=== PATIENT | female | born 1945 | race Caucasian/White ===

== ENCOUNTER → 2016-12-27 | Outpatient (CLI) | payer MEDICARE, OTHER ==
[~2016-12-27] MED LIST: ACET-1158; CARI350T21; LEVO150T68; OMEP20TA44; PLAVIX; PRON100T; [UNRECOGNIZED DRUG - CODE]
[2016-12-27 12:27] LABS: Basophils # (auto) 0 uL; Basophils % (auto) 0.4 % (0.0-2.0); Eosinophils # (auto) 0.1 uL; Eosinophils % (auto) 1.2 % (0.0-7.0); Hematocrit 37.4 % (36.0-46.0); Hemoglobin 12.3 g/dL (12.2-16.2); Lymphocytes # (auto) 1.6 uL; Lymphocytes % (auto) 26.9 % (10.0-50.0); Mean Corpuscular Hemoglobin 27.7 pg (28.0-32.0); Mean Corpuscular Hgb Conc. 32.8 g/dL (32.0-36.0); Mean Corpuscular Volume 84.5 fL (80.0-100.0); Mean Platelet Volume 8.6 fL (7.4-10.4); Monocytes # (auto) 0.5 uL; Monocytes % (auto) 8.3 % (0.0-12.0); Neutrophils # (auto) 3.7 uL; Neutrophils % (auto) 63.2 % (37.0-80.0); Platelet Count (auto) 247 10^3/uL (140-450); Red Cell Distribution Width 15.5 % (11.6-16.0); White Blood Cell 5.9 10^3/uL (4.4-10.8)
[2016-12-27 12:58] LABS: Albumin 3.3 g/dL (3.4-5.0); Bilirubin, Direct 0.1 mg/dL (0-0.2); Bilirubin, Total 0.3 mg/dL (0.2-1.0); Calcium 9.3 mg/dL (8.5-10.1); Potassium 4.2 mmol/L (3.5-5.1); Total Protein 7.6 g/dL (6.4-8.2)
== END | disposition home or self-care (01) ==
LOC: LAB 09:47
PROVIDERS: ATTEND Internal Medicine Cardiovascular Disease
DX: I10 Essential (primary) hypertension (principal); E78.00 Pure hypercholesterolemia, unspecified; K74.1 Hepatic sclerosis; E11.9 Type 2 diabetes mellitus without complications; E03.9 Hypothyroidism, unspecified; D64.9 Anemia, unspecified; N39.0 Urinary tract infection, site not specified
CPT/HCPCS: 36415; 80048; 80061; 80076; 82306; 83036; 84443; 85025

== ENCOUNTER 2017-01-25 11:38 | Emergency (ER) | payer MEDICARE, OTHER ==
[~2017-01-25] VITALS: Ht 170.2 cm; Wt 108.9 kg
[~2017-01-25 11:38] MED LIST changes: +CARI-316; -CARI350T21
[2017-01-25] MEDS ORDERED: LORazepam 2MG/ML-1ML VIAL IV ONE (12:15)
[2017-01-25] MEDS ORDERED: cloNIDine HCL 0.1 MG TAB PO ONE (12:15)
[2017-01-25 12:20] VITALS: BP 142/68
[2017-01-25 13:22] LABS: Basophils # (auto) 0 uL; Basophils % (auto) 0.2 % (0.0-2.0); Eosinophils # (auto) 0.1 uL; Eosinophils % (auto) 1.3 % (0.0-7.0); Hematocrit 34.7 % (36.0-46.0); Hemoglobin 11.6 g/dL (12.2-16.2); Lymphocytes # (auto) 1.2 uL; Lymphocytes % (auto) 21.1 % (10.0-50.0); Mean Corpuscular Hgb Conc. 33.3 g/dL (32.0-36.0); Mean Corpuscular Volume 83.9 fL (80.0-100.0); Mean Platelet Volume 8.2 fL (7.4-10.4); Monocytes # (auto) 0.5 uL; Monocytes % (auto) 8.4 % (0.0-12.0); Neutrophils # (auto) 3.9 uL; Platelet Count (auto) 231 10^3/uL (140-450); Red Cell Distribution Width 15.4 % (11.6-16.0); White Blood Cell 5.6 10^3/uL (4.4-10.8)
[2017-01-25 13:32] LABS: Partial Thromboplastin Time 25.9 sec (22.64-33.71); Prothrombin Time 10.9 sec (9.37-12.3)
[2017-01-25 13:41] LABS: Albumin 3.3 g/dL (3.4-5.0); Alkaline Phosphatase 119 U/L (45-117); Anion Gap 7 (5-15); Aspartate Aminotransferase 17 U/L (15-37); BUN/Creatinine Ratio 27.6; Bilirubin, Total 0.3 mg/dL (0.2-1.0); Blood Urea Nitrogen 24 mg/dL (7-18); Carbon Dioxide 24 mmol/L (21-32); Chloride 110 mmol/L (98-107); GFR African American 83 mL/min; GFR Non-African American 69 mL/min; Glucose 95 mg/dL (74-106); Potassium 4.1 mmol/L (3.5-5.1); Sodium 141 mmol/L (136-145); Total Protein 7.2 g/dL (6.4-8.2)
[2017-01-25 13:48] LABS: B-Type Natriuretic Peptide 59.47 pg/mL (0-100)
[2017-01-25 13:56] LABS: Temperature: 23.1 C (20.0-25.0)
== END 2017-01-25 15:04 | disposition home or self-care (01) ==
LOC: EDUNIT# 11:38 → ER 11:38 → EDBD 11:38 → ER 15:00
DX: I10 Essential (primary) hypertension (principal); F41.9 Anxiety disorder, unspecified; M79.89 Other specified soft tissue disorders; I25.2 Old myocardial infarction; Z86.718 Personal history of other venous thrombosis and embolism; Z98.61 Coronary angioplasty status; Z90.710 Acquired absence of both cervix and uterus; Z88.1 Allergy status to other antibiotic agents; Z88.6 Allergy status to analgesic agent; Z88.8 Allergy status to other drugs, medicaments and biological substances; Z91.041 Radiographic dye allergy status; Z86.73 Personal history of transient ischemic attack (TIA), and cerebral infarction without residual deficits; Z98.51 Tubal ligation status
CPT/HCPCS: 36415; 71010; 80053; 83880; 84484; 85025; 85610; 85730; 93005; 93970

== ENCOUNTER 2017-08-20 13:58 | Emergency (ER) | payer MEDICARE, OTHER ==
[~2017-08-20] VITALS: Ht 167.6 cm; Wt 74.8 kg
[2017-08-20 14:14] VITALS: BP 205/89
== END 2017-08-20 16:29 | disposition home or self-care (01) ==
LOC: EDBD 13:58 → ER 14:21
DX: S62.307A Unspecified fracture of fifth metacarpal bone, left hand, initial encounter for closed fracture (principal); M16.12 Unilateral primary osteoarthritis, left hip; M17.12 Unilateral primary osteoarthritis, left knee; I25.2 Old myocardial infarction; E07.89 Other specified disorders of thyroid; G89.29 Other chronic pain; Z86.73 Personal history of transient ischemic attack (TIA), and cerebral infarction without residual deficits; Z90.710 Acquired absence of both cervix and uterus; Z98.61 Coronary angioplasty status; Z98.51 Tubal ligation status; Z88.0 Allergy status to penicillin; Z88.8 Allergy status to other drugs, medicaments and biological substances; W19.XXXA Unspecified fall, initial encounter; Y93.89 Activity, other specified; Y99.8 Other external cause status; Y92.89 Other specified places as the place of occurrence of the external cause
CPT/HCPCS: 29125; 73130; 73502; 73562

== ENCOUNTER → 2017-11-01 | Outpatient (CLI) | payer MEDICARE, OTHER | END | disposition home or self-care (01) | LOC: LAB 12:50 | PROVIDERS: ATTEND Internal Medicine Cardiovascular Disease | DX: N39.0 Urinary tract infection, site not specified (principal); I10 Essential (primary) hypertension | CPT/HCPCS: 87086; 87088 ==

== ENCOUNTER → 2018-01-23 | Outpatient (CLI) | payer MEDICARE, OTHER | END | disposition home or self-care (01) | LOC: Rad HDHVI 08:18 | PROVIDERS: ATTEND Internal Medicine | DX: I10 Essential (primary) hypertension (principal); E03.9 Hypothyroidism, unspecified; R07.89 Other chest pain | CPT/HCPCS: 93306 ==

== ENCOUNTER → 2018-02-03 | Outpatient (CLI) | payer MEDICARE, OTHER ==
[~2018-02-03] VITALS: Ht 167.6 cm; Wt 108.9 kg
[~2018-02-03] MED LIST changes: +DIPYRIDAMOLE (5MG/ML) 10 ML VIAL IV ONE; +DIPYRIDAMOLE 60 MG in D5W 5% 50 ML IV SCH
[2018-02-03 12:11] LABS: Basophils # (auto) 0 uL; Basophils % (auto) 0.4 % (0.0-2.0); Eosinophils # (auto) 0.2 uL; Eosinophils % (auto) 2.7 % (0.0-7.0); Hematocrit 33.7 % (36.0-46.0); Hemoglobin 10.8 g/dL (12.2-16.2); Lymphocytes # (auto) 1.6 uL; Mean Corpuscular Hemoglobin 27.8 pg (28.0-32.0); Mean Corpuscular Hgb Conc. 32.2 g/dL (32.0-36.0); Mean Corpuscular Volume 86.5 fL (80.0-100.0); Monocytes # (auto) 0.5 uL; Neutrophils # (auto) 3.5 uL; Neutrophils % (auto) 59.9 % (37.0-80.0); Nucleated Red Blood Cells % 0.1 %; Platelet Count (auto) 219 10^3/uL (140-450); Red Cell Distribution Width 14.9 % (11.8-14.3); White Blood Cell 5.8 10^3/uL (4.4-10.8)
[2018-02-03 12:45] LABS: Albumin 3.4 g/dL (3.4-5.0); Bilirubin, Total 0.3 mg/dL (0.2-1.0); Calcium 9.2 mg/dL (8.5-10.1); Potassium 4.5 mmol/L (3.5-5.1); Total Protein 7.7 g/dL (6.4-8.2)
[2018-02-03 15:54] LABS: Urine Blood Negative /uL (Negative); Urine Specific Gravity 1.017 (1.001-1.035)
[2018-02-03 18:36] LABS: Free T4 (Free Thyroxine) 1.56 ng/dL (0.89-1.76)
== END | disposition home or self-care (01) ==
LOC: Rad HDHVI 09:34
PROVIDERS: ATTEND Internal Medicine
DX: Z00.01 Encounter for general adult medical examination with abnormal findings (principal); I10 Essential (primary) hypertension; E11.9 Type 2 diabetes mellitus without complications; E03.9 Hypothyroidism, unspecified; E55.9 Vitamin D deficiency, unspecified; D51.9 Vitamin B12 deficiency anemia, unspecified; N39.0 Urinary tract infection, site not specified; R63.8 Other symptoms and signs concerning food and fluid intake; G47.33 Obstructive sleep apnea (adult) (pediatric); E78.5 Hyperlipidemia, unspecified; J45.909 Unspecified asthma, uncomplicated; F41.9 Anxiety disorder, unspecified; E78.00 Pure hypercholesterolemia, unspecified
CPT/HCPCS: 36415; 78452; 80053; 80061; 81003; 82306; 82607; 83036; 84439; 84443; 85025; 93005; 96374; 96375; A9500; J1245

== ENCOUNTER → 2018-08-03 | Outpatient (CLI) | payer MEDICARE, BC ==
[~2018-08-03] MED LIST changes: -CARI-316; +CARI350T22; -DIPYRIDAMOLE (5MG/ML) 10 ML VIAL IV ONE; -DIPYRIDAMOLE 60 MG in D5W 5% 50 ML IV SCH
[2018-08-03 12:25] LABS: Basophils # (auto) 0 uL; Basophils % (auto) 0.3 % (0.0-2.0); Eosinophils # (auto) 0.1 uL; Eosinophils % (auto) 2.3 % (0.0-7.0); Hematocrit 33.4 % (36.0-46.0); Hemoglobin 10.6 g/dL (12.2-16.2); Lymphocytes # (auto) 1.6 uL; Lymphocytes % (auto) 25.8 % (10.0-50.0); Mean Corpuscular Hgb Conc. 31.7 g/dL (32.0-36.0); Mean Corpuscular Volume 88.3 fL (80.0-100.0); Monocytes # (auto) 0.6 uL; Monocytes % (auto) 10.6 % (0.0-12.0); Neutrophils # (auto) 3.7 uL; Nucleated Red Blood Cells % 0.1 %; Platelet Count (auto) 230 10^3/uL (140-450); Red Blood Cells 3.78 10^6/uL (4.0-5.20); Red Cell Distribution Width 14.9 % (11.8-14.3)
[2018-08-03 12:38] LABS: Albumin 3.3 g/dL (3.4-5.0); Calcium 8.9 mg/dL (8.5-10.1)
[2018-08-03 12:39] LABS: Urine Blood Negative /uL (Negative); Urine Specific Gravity 1.019 (1.001-1.035)
[2018-08-03 12:42] LABS: BUN/Creatinine Ratio 33.3; Bilirubin, Total 0.3 mg/dL (0.2-1.0); Total Protein 7.5 g/dL (6.4-8.2)
[2018-08-03 12:47] LABS: Free T4 (Free Thyroxine) 1.57 ng/dL (0.89-1.76)
== END | disposition home or self-care (01) ==
LOC: LAB 09:15
PROVIDERS: ATTEND Internal Medicine Cardiovascular Disease
DX: E03.9 Hypothyroidism, unspecified (principal); E55.9 Vitamin D deficiency, unspecified; E11.9 Type 2 diabetes mellitus without complications; D51.9 Vitamin B12 deficiency anemia, unspecified; N39.0 Urinary tract infection, site not specified
CPT/HCPCS: 36415; 80053; 80061; 81003; 82306; 82607; 83036; 84439; 84443; 85025; 87086

== ENCOUNTER → 2018-09-18 | Outpatient (CLI) | payer MEDICARE, BC ==
[2018-09-18 16:28] LABS: Albumin 3.4 g/dL (3.4-5.0); BUN/Creatinine Ratio 27.6; Calcium 8.9 mg/dL (8.5-10.1); Potassium 4.2 mmol/L (3.5-5.1)
[2018-09-18 16:31] LABS: Bilirubin, Total 0.3 mg/dL (0.2-1.0); Total Protein 8.2 g/dL (6.4-8.2)
== END | disposition home or self-care (01) ==
LOC: Rad HDHVI 13:15
PROVIDERS: ATTEND Internal Medicine Cardiovascular Disease
DX: I07.1 Rheumatic tricuspid insufficiency (principal); I10 Essential (primary) hypertension; D51.9 Vitamin B12 deficiency anemia, unspecified
CPT/HCPCS: 36415; 80053; 82607; 93306

== ENCOUNTER → 2019-10-10 | Outpatient (CLI) | payer MEDICARE, BC ==
[2019-10-10 12:24] LABS: Albumin 3.1 g/dL (3.4-5.0); Calcium 9.1 mg/dL (8.5-10.1); Potassium 4.9 mmol/L (3.5-5.1); Uric Acid 11.3 mg/dL (2.6-6.0)
[2019-10-10 12:27] LABS: BUN/Creatinine Ratio 37.1; Bilirubin, Total 0.3 mg/dL (0.2-1.0); Total Protein 7.5 g/dL (6.4-8.2)
== END | disposition home or self-care (01) ==
LOC: LAB 08:43
PROVIDERS: ATTEND Internal Medicine
DX: M10.9 Gout, unspecified (principal); E03.9 Hypothyroidism, unspecified
CPT/HCPCS: 36415; 80053; 84443; 84550; 86431

== ENCOUNTER → 2019-10-23 | Outpatient (CLI) | payer BC, MEDICARE ==
[2019-10-23 16:13] LABS: Free T4 (Free Thyroxine) 1.67 ng/dL (0.89-1.76); T3 Total 0.84 ng/mL (0.60-1.81)
== END | disposition home or self-care (01) ==
LOC: LAB 12:02
PROVIDERS: ATTEND Internal Medicine
DX: R79.82 Elevated C-reactive protein (CRP) (principal); E03.9 Hypothyroidism, unspecified; R70.0 Elevated erythrocyte sedimentation rate; M32.10 Systemic lupus erythematosus, organ or system involvement unspecified; E78.5 Hyperlipidemia, unspecified
CPT/HCPCS: 36415; 84439; 84480; 85652; 86141

== ENCOUNTER → 2020-06-04 | Outpatient (CLI) | payer MEDICARE | END | disposition home or self-care (01) | LOC: Rad HDHVI 14:55 | PROVIDERS: ATTEND Internal Medicine Cardiovascular Disease | DX: M11.242 Other chondrocalcinosis, left hand (principal); M11.241 Other chondrocalcinosis, right hand; M11.232 Other chondrocalcinosis, left wrist; M11.231 Other chondrocalcinosis, right wrist; M77.32 Calcaneal spur, left foot; M11.29 Other chondrocalcinosis, multiple sites; M16.0 Bilateral primary osteoarthritis of hip; M54.2 Cervicalgia; M18.0 Bilateral primary osteoarthritis of first carpometacarpal joints; M79.89 Other specified soft tissue disorders; M85.872 Other specified disorders of bone density and structure, left ankle and foot; M85.871 Other specified disorders of bone density and structure, right ankle and foot | CPT/HCPCS: 72040; 72170; 73110; 73130; 73630 ==

== ENCOUNTER → 2020-07-21 | Outpatient (CLI) | payer MEDICARE, BC | END | disposition home or self-care (01) | LOC: Rad HDHVI 15:18 | PROVIDERS: ATTEND Internal Medicine Cardiovascular Disease | DX: I08.0 Rheumatic disorders of both mitral and aortic valves (principal); R00.2 Palpitations; R06.02 Shortness of breath | CPT/HCPCS: 93306 ==

== ENCOUNTER → 2020-09-29 | Outpatient (CLI) | payer MEDICARE, BC ==
[~2020-09-29] MED LIST changes: +ACET-1304 PO; +CLOP75TA28 PO; +LEV150T; +LEVAAER IN; -LEVO150T68; +LEVO175T2 PO; +LISI-646 PO; +LORA-655 PO; +PROM25TA5 PO
[2020-09-29 08:49] VITALS: BP 144/60
[2020-09-29 09:06] VITALS: BP 143/59
[2020-09-29 12:02] LABS: Basophils # (auto) 0 10 ^3/uL (0-0.2); Basophils % (auto) 0.4 % (0.0-2.0); Eosinophils # (auto) 0.2 10 ^3/uL (0-0.8); Hematocrit 31.7 % (36.0-46.0); Hemoglobin 10.2 g/dL (12.2-16.2); Lymphocytes # (auto) 1.3 10 ^3/uL (0.4-5.4); Lymphocytes % (auto) 22.1 % (10.0-50.0); Mean Corpuscular Hgb Conc. 32.1 g/dL (32.0-36.0); Mean Corpuscular Volume 87.2 fL (80.0-100.0); Monocytes # (auto) 0.5 10 ^3/uL (0-1.3); Monocytes % (auto) 8.4 % (0.0-12.0); Neutrophils # (auto) 3.8 10 ^3/uL (1.6-8.6); Neutrophils % (auto) 66.1 % (37.0-80.0); Nucleated Red Blood Cells % 0.1 %; Platelet Count (auto) 219 10^3/uL (140-450); Red Blood Cells 3.63 10^6/uL (4.0-5.20); White Blood Cell 5.7 10^3/uL (4.4-10.8)
[2020-09-29 12:17] LABS: Potassium 4.5 mmol/L (3.5-5.1)
[2020-09-29 12:19] LABS: INR 1.01 (0.9-1.15); Partial Thromboplastin Time 25.7 sec (23.0-31.2)
== END | disposition home or self-care (01) ==
LOC: Rad HDHVI 08:14
PROVIDERS: ATTEND Internal Medicine Cardiovascular Disease
DX: Z01.812 Encounter for preprocedural laboratory examination (principal); I06.1 Rheumatic aortic insufficiency; I50.9 Heart failure, unspecified
CPT/HCPCS: 36415; 80048; 85025; 85610; 85730; 93005; G0463

== ENCOUNTER 2020-10-02 06:49 | Day surgery (SDC) | payer MEDICARE, BC ==
[~2020-10-02] VITALS: Ht 165.1 cm; Wt 104.3 kg
[~2020-10-02 06:49] MED LIST changes: -ACET-1158; -CARI350T22; -LEV150T; -OMEP20TA44; -PLAVIX; -PRON100T; -[UNRECOGNIZED DRUG - CODE]
[2020-10-02] MEDS ORDERED: LIDOCAINE 2%HCL (LOCAL ANESTH.) INJ 20ML MDV ONE ×2 (07:37→12:10)
[2020-10-02] MEDS ORDERED: IOHEXOL 350 MG/ML 100ML IJ ONE (07:48)
[2020-10-02] MEDS ORDERED: fentaNYL CITRATE 100 MCG/2 ML VL IV ONE (09:00)
[2020-10-02] MEDS ORDERED: MIDAZOLAM HCL 1MG/1ML-2 ML VIAL IV ONE (09:00)
[2020-10-02] MEDS ORDERED: ANGIOMAX 250 MG VIAL IV ONE (09:37)
[2020-10-02] MEDS ORDERED: SODIUM CHL 0.9% 0 ML ONE (09:37)
[2020-10-02] MEDS ORDERED: diphenhdrAMINE HCL 50 MG/1 ML VL ONE (09:37)
[2020-10-02] MEDS ORDERED: methylPREDNISolone SOD SUCC 125 MG/2 ML VL ONE (11:03)
[2020-10-02] MEDS ORDERED: FAMOTIDINE (10MG/ML) 2ML VL IV ONE (11:03)
[2020-10-02] MEDS ORDERED: HYDROmorphone HCL 2 MG/ML VL ONE (11:54)
[2020-10-02] MEDS ORDERED: PROMETHAZINE HCL 25 MG/ML 1ML ONE (11:55)
[2020-10-02] MEDS ORDERED: MIDAZOLAM HCL 1MG/1ML-2 ML VIAL ONE (12:12)
[2020-10-02] MEDS ORDERED: ACETAMINOPHEN 500 MG TAB PO PRN (13:30)
[2020-10-02] MEDS ORDERED: ONDANSETRON HCL 4 MG/2 ML VIAL IV PRN (13:30)
== END 2020-10-02 15:27 | disposition home or self-care (01) ==
LOC: CATH 06:49
PROVIDERS: ATTEND Internal Medicine Cardiovascular Disease
DX: R06.02 Shortness of breath (principal); I25.10 Atherosclerotic heart disease of native coronary artery without angina pectoris; I08.1 Rheumatic disorders of both mitral and tricuspid valves; G47.30 Sleep apnea, unspecified; I25.2 Old myocardial infarction; I10 Essential (primary) hypertension; J45.909 Unspecified asthma, uncomplicated; Z20.822 Contact with and (suspected) exposure to COVID-19; Z98.890 Other specified postprocedural states; Z79.899 Other long term (current) drug therapy; Z91.041 Radiographic dye allergy status; Z88.0 Allergy status to penicillin; Z68.38 Body mass index [BMI] 38.0-38.9, adult; Z88.8 Allergy status to other drugs, medicaments and biological substances; Z95.5 Presence of coronary angioplasty implant and graft; Z86.718 Personal history of other venous thrombosis and embolism; Z90.710 Acquired absence of both cervix and uterus; Z87.891 Personal history of nicotine dependence
CPT/HCPCS: 93306; 93458; C1760; C1894; J1170; J1200; J1644; J2250; J2550; J2930; J3010; J3490; J7030; Q9967; U0003; 99152; 99153

== ENCOUNTER → 2020-12-01 | Outpatient (CLI) | payer MEDICARE, BC ==
[2020-12-01 11:52] LABS: Potassium 5.2 mmol/L (3.5-5.1)
[2020-12-01 11:58] LABS: BUN/Creatinine Ratio 40.8; Calcium 9.8 mg/dL (8.5-10.1)
== END | disposition home or self-care (01) ==
LOC: LAB 10:25
PROVIDERS: ATTEND Internal Medicine Cardiovascular Disease
DX: I10 Essential (primary) hypertension (principal)
CPT/HCPCS: 36415; 80048

== ENCOUNTER → 2020-12-15 | Outpatient (CLI) | payer MEDICARE, BC ==
[2020-12-15 16:08] LABS: BUN/Creatinine Ratio 36.4; Calcium 9.4 mg/dL (8.5-10.1); Potassium 5.2 mmol/L (3.5-5.1)
[2020-12-15 16:19] LABS: Basophils # (auto) 0 10 ^3/uL (0-0.2); Basophils % (auto) 0.3 % (0.0-2.0); Eosinophils # (auto) 0.1 10 ^3/uL (0-0.8); Eosinophils % (auto) 1.4 % (0.0-7.0); Hematocrit 32.7 % (36.0-46.0); Hemoglobin 10.7 g/dL (12.2-16.2); Lymphocytes # (auto) 1.6 10 ^3/uL (0.4-5.4); Lymphocytes % (auto) 21.5 % (10.0-50.0); Mean Corpuscular Hemoglobin 28.3 pg (28.0-32.0); Mean Corpuscular Hgb Conc. 32.7 g/dL (32.0-36.0); Mean Corpuscular Volume 86.4 fL (80.0-100.0); Monocytes # (auto) 0.5 10 ^3/uL (0-1.3); Monocytes % (auto) 6.8 % (0.0-12.0); Neutrophils # (auto) 5.2 10 ^3/uL (1.6-8.6); Nucleated Red Blood Cells % 0.1 %; Platelet Count (auto) 232 10^3/uL (140-450); Red Blood Cells 3.78 10^6/uL (4.0-5.20); Red Cell Distribution Width 15.9 % (11.8-14.3); White Blood Cell 7.5 10^3/uL (4.4-10.8)
== END | disposition home or self-care (01) ==
LOC: LAB 12:52
PROVIDERS: ATTEND Internal Medicine Cardiovascular Disease
DX: I10 Essential (primary) hypertension (principal); D64.9 Anemia, unspecified
CPT/HCPCS: 36415; 80048; 85025; 85045

== ENCOUNTER → 2020-12-31 | Outpatient (CLI) | payer MEDICARE, BC ==
[~2020-12-31] MED LIST changes: -LISI-646 PO; +LISI20TA28 PO
== END | disposition home or self-care (01) ==
LOC: Rad HDHVI 11:02
PROVIDERS: ATTEND Internal Medicine Cardiovascular Disease
DX: I82.409 Acute embolism and thrombosis of unspecified deep veins of unspecified lower extremity (principal); E78.9 Disorder of lipoprotein metabolism, unspecified
CPT/HCPCS: 93970

== ENCOUNTER 2021-01-18 06:09 | Emergency (ER) | payer MEDICARE, BC ==
[~2021-01-18] VITALS: Ht 165.1 cm; Wt 104.3 kg
[2021-01-18 07:29] VITALS: BP 159/75
[2021-01-18] MEDS ORDERED: ONDANSETRON ODT 4 MG TAB PO ONE (08:15)
[2021-01-18] MEDS ORDERED: ACETAMINOPHEN/CODEINE#3 (300/30mg) TAB PO ONE (08:15)
== END 2021-01-18 13:22 | disposition home or self-care (01) ==
LOC: ER 06:09 → EDBD 06:09 → EDUNIT# 06:09 → ER 13:22
DX: M25.461 Effusion, right knee (principal); M85.472 Solitary bone cyst, left ankle and foot; I10 Essential (primary) hypertension; I25.2 Old myocardial infarction; I25.10 Atherosclerotic heart disease of native coronary artery without angina pectoris; E78.5 Hyperlipidemia, unspecified; Z90.710 Acquired absence of both cervix and uterus; Z79.899 Other long term (current) drug therapy; Z79.01 Long term (current) use of anticoagulants; Z88.0 Allergy status to penicillin; Z88.8 Allergy status to other drugs, medicaments and biological substances
CPT/HCPCS: 73562; 73630; 93971; 99284; Q0162

== ENCOUNTER → 2021-01-21 | Outpatient (CLI) | payer MEDICARE, BC ==
[~2021-01-21] MED LIST changes: +FUROSEMIDE 20 MG/2 ML VIAL IV ONE; +FUROSEMIDE 20 MG/2 ML VIAL ONE; +TRIAMCINOLONE 40MG/ML 1ML VIAL IM ONE; +TRIAMCINOLONE 40MG/ML 1ML VIAL ONE
[2021-01-21 12:21] VITALS: BP 143/64
[2021-01-21 13:00] VITALS: BP 151/55
[2021-01-21 15:14] LABS: BUN/Creatinine Ratio 29.4; Calcium 9.8 mg/dL (8.5-10.1); Magnesium 2.5 mg/dL (1.6-2.6); Uric Acid 11.5 mg/dL (2.6-6.0)
== END | disposition home or self-care (01) ==
LOC: CHF HDHVI 12:25
PROVIDERS: ATTEND Internal Medicine
DX: I11.0 Hypertensive heart disease with heart failure (principal); I50.42 Chronic combined systolic (congestive) and diastolic (congestive) heart failure; M10.9 Gout, unspecified; R60.0 Localized edema; I25.10 Atherosclerotic heart disease of native coronary artery without angina pectoris; I25.2 Old myocardial infarction; Z79.01 Long term (current) use of anticoagulants; Z79.899 Other long term (current) drug therapy; Z90.710 Acquired absence of both cervix and uterus
CPT/HCPCS: 36415; 80048; 83735; 84550; 96372; 96374; G0463; J1940; J3301

== ENCOUNTER → 2021-01-23 | Outpatient (CLI) | payer MEDICARE, BC ==
[~2021-01-23] MED LIST changes: -FUROSEMIDE 20 MG/2 ML VIAL IV ONE; -FUROSEMIDE 20 MG/2 ML VIAL ONE; -TRIAMCINOLONE 40MG/ML 1ML VIAL IM ONE; -TRIAMCINOLONE 40MG/ML 1ML VIAL ONE
[2021-01-23 12:32] VITALS: BP 163/57
[2021-01-23 13:45] VITALS: BP 155/60
== END | disposition home or self-care (01) ==
LOC: CHF HDHVI 13:04
PROVIDERS: ATTEND Internal Medicine Cardiovascular Disease
DX: R60.0 Localized edema (principal)
CPT/HCPCS: G0463

== ENCOUNTER → 2021-02-04 | Outpatient (CLI) | payer MEDICARE, BC ==
[2021-02-04 15:14] LABS: BUN/Creatinine Ratio 23.2; Calcium 9.4 mg/dL (8.5-10.1); Potassium 3.8 mmol/L (3.5-5.1)
== END | disposition home or self-care (01) ==
LOC: LAB 11:00
PROVIDERS: ATTEND Internal Medicine Cardiovascular Disease
DX: I10 Essential (primary) hypertension (principal)
CPT/HCPCS: 36415; 80048

== ENCOUNTER → 2021-02-13 | Outpatient (CLI) | payer MEDICARE, BC ==
[2021-02-13 15:26] LABS: Calcium 9.3 mg/dL (8.5-10.1)
== END | disposition home or self-care (01) ==
LOC: LAB 12:26
PROVIDERS: ATTEND Internal Medicine Cardiovascular Disease
DX: I10 Essential (primary) hypertension (principal)
CPT/HCPCS: 36415; 80048

== ENCOUNTER → 2021-02-20 | Outpatient (CLI) | payer MEDICARE, BC ==
[2021-02-20 15:32] LABS: Uric Acid 5.6 mg/dL (2.6-6.0)
== END | disposition home or self-care (01) ==
LOC: LAB 13:12
PROVIDERS: ATTEND Internal Medicine Cardiovascular Disease
DX: R94.4 Abnormal results of kidney function studies (principal); M10.9 Gout, unspecified
CPT/HCPCS: 36415; 82565; 84520; 84550

== ENCOUNTER 2022-02-14 00:28 | Emergency (ER) | payer MEDICARE, BC ==
[~2022-02-14] VITALS: Ht 165.1 cm; Wt 104.3 kg
[2022-02-14 00:28] VITALS: BP 129/46
== END 2022-02-14 07:33 | disposition left against medical advice (07) ==
LOC: ER 00:28
DX: S85.901A Unspecified injury of unspecified blood vessel at lower leg level, right leg, initial encounter (principal); Z53.21 Procedure and treatment not carried out due to patient leaving prior to being seen by health care provider; X58.XXXA Exposure to other specified factors, initial encounter; Y93.89 Activity, other specified; Y92.89 Other specified places as the place of occurrence of the external cause; Y99.8 Other external cause status

== ENCOUNTER → 2022-02-24 | Outpatient (CLI) | payer MEDICARE, BC ==
[2022-02-24 11:00] VITALS: BP 144/70
[2022-02-24 11:15] VITALS: BP 173/73
[2022-02-24 16:29] LABS: Urine Blood Negative /uL (Negative); Urine Specific Gravity 1.026 (1.001-1.035)
[2022-02-24 16:39] LABS: Basophils # (auto) 0 10 ^3/uL (0-0.2); Basophils % (auto) 0.4 % (0.0-2.0); Eosinophils # (auto) 0.1 10 ^3/uL (0-0.8); Eosinophils % (auto) 0.9 % (0.0-7.0); Hematocrit 35.6 % (36.0-46.0); Hemoglobin 11.2 g/dL (12.2-16.2); Lymphocytes # (auto) 1.7 10 ^3/uL (0.4-5.4); Lymphocytes % (auto) 26.9 % (10.0-50.0); Mean Corpuscular Hemoglobin 27.6 pg (28.0-32.0); Mean Corpuscular Hgb Conc. 31.3 g/dL (32.0-36.0); Monocytes # (auto) 0.5 10 ^3/uL (0-1.3); Monocytes % (auto) 8.7 % (0.0-12.0); Neutrophils % (auto) 63.1 % (37.0-80.0); Nucleated Red Blood Cells % 0.1 %; Red Blood Cells 4.05 10^6/uL (4.0-5.20); Red Cell Distribution Width 17.1 % (11.8-14.3); White Blood Cell 6.3 10^3/uL (4.4-10.8)
[2022-02-24 16:41] LABS: Albumin 2.9 g/dL (3.4-5.0); BUN/Creatinine Ratio 28.8; Calcium 9.4 mg/dL (8.5-10.1)
[2022-02-24 16:47] LABS: Bilirubin, Direct 0.1 mg/dL (0-0.2); Bilirubin, Total 0.3 mg/dL (0.2-1.0); Total Protein 7.4 g/dL (6.4-8.2)
== END | disposition home or self-care (01) ==
LOC: CHF HDHVI 11:04
PROVIDERS: ATTEND Internal Medicine
DX: S61.511A Laceration without foreign body of right wrist, initial encounter (principal); D51.3 Other dietary vitamin B12 deficiency anemia; D64.9 Anemia, unspecified; E11.9 Type 2 diabetes mellitus without complications; E55.9 Vitamin D deficiency, unspecified; I10 Essential (primary) hypertension; R00.2 Palpitations; R53.1 Weakness; R30.0 Dysuria; X58.XXXA Exposure to other specified factors, initial encounter; Y93.89 Activity, other specified; Y92.89 Other specified places as the place of occurrence of the external cause; Y99.8 Other external cause status
CPT/HCPCS: 36415; 80048; 80061; 80076; 81003; 82306; 83036; 84443; 85025; G0463; 87086

== ENCOUNTER → 2022-03-15 | Outpatient (CLI) | payer MEDICARE, BC ==
[2022-03-15 12:02] LABS: Potassium 4.3 mmol/L (3.5-5.1)
[2022-03-15 12:20] LABS: BUN/Creatinine Ratio 27.6; Calcium 9.4 mg/dL (8.5-10.1); Magnesium 2.6 mg/dL (1.6-2.6); Uric Acid 5.6 mg/dL (2.6-6.0)
== END | disposition home or self-care (01) ==
LOC: LAB 09:55
PROVIDERS: ATTEND Internal Medicine
DX: M10.9 Gout, unspecified (principal); E03.9 Hypothyroidism, unspecified; I10 Essential (primary) hypertension
CPT/HCPCS: 36415; 80048; 83735; 84439; 84443; 84550

== ENCOUNTER → 2022-03-25 | Outpatient (CLI) | payer MEDICARE, BC ==
[~2022-03-25] VITALS: Ht 165.1 cm; Wt 104.3 kg
== END | disposition home or self-care (01) ==
LOC: Rad HDHVI 13:50
PROVIDERS: ATTEND Internal Medicine Cardiovascular Disease
DX: R07.9 Chest pain, unspecified (principal); R06.02 Shortness of breath; R42 Dizziness and giddiness; I35.1 Nonrheumatic aortic (valve) insufficiency; E78.5 Hyperlipidemia, unspecified; I25.10 Atherosclerotic heart disease of native coronary artery without angina pectoris; I25.2 Old myocardial infarction; I10 Essential (primary) hypertension; Z82.49 Family history of ischemic heart disease and other diseases of the circulatory system
CPT/HCPCS: 78452; 93017; 96374; A9500

== ENCOUNTER → 2022-04-12 | Outpatient (CLI) | payer MEDICARE, BC ==
[2022-04-12 17:25] LABS: BUN/Creatinine Ratio 27.9; Calcium 9.3 mg/dL (8.5-10.1); Potassium 3.8 mmol/L (3.5-5.1)
== END | disposition home or self-care (01) ==
LOC: LAB 11:23
PROVIDERS: ATTEND Internal Medicine Cardiovascular Disease
DX: I10 Essential (primary) hypertension (principal)
CPT/HCPCS: 36415; 80048

== ENCOUNTER 2022-08-18 17:31 | Inpatient (IN) | payer MEDICARE, BC ==
[~2022-08-18] VITALS: Ht 162.6 cm; Wt 104.5 kg
[2022-08-18] MEDS ORDERED: dilTIAZem 25 MG/5 ML VIAL IV ONE (18:00)
[2022-08-18 19:06] LABS: Basophils # (auto) 0 10 ^3/uL (0-0.2); Basophils % (auto) 0.3 % (0.0-2.0); Eosinophils # (auto) 0.2 10 ^3/uL (0-0.8); Eosinophils % (auto) 2.2 % (0.0-7.0); Hematocrit 34.9 % (36.0-46.0); Hemoglobin 11.5 g/dL (12.2-16.2); Lymphocytes # (auto) 1.9 10 ^3/uL (0.4-5.4); Mean Corpuscular Hemoglobin 28.6 pg (28.0-32.0); Mean Corpuscular Hgb Conc. 32.8 g/dL (32.0-36.0); Mean Corpuscular Volume 87.3 fL (80.0-100.0); Monocytes # (auto) 0.5 10 ^3/uL (0-1.3); Monocytes % (auto) 7.1 % (0.0-12.0); Neutrophils # (auto) 4.9 10 ^3/uL (1.6-8.6); Neutrophils % (auto) 65.4 % (37.0-80.0); Nucleated Red Blood Cells % 0.1 %; Red Cell Distribution Width 17.6 % (11.8-14.3); White Blood Cell 7.5 10^3/uL (4.4-10.8)
[2022-08-18 19:18] LABS: INR 1.02 (0.9-1.15); Partial Thromboplastin Time 29.7 sec (24.6-33.4)
[2022-08-18 19:34] LABS: Albumin 3.6 g/dL (3.4-5.0); Calcium 9.9 mg/dL (8.5-10.1); Magnesium 2.1 mg/dL (1.6-2.6); Potassium 4.1 mmol/L (3.5-5.1)
[2022-08-18 19:37] LABS: BUN/Creatinine Ratio 20.2; Bilirubin, Total 0.3 mg/dL (0.2-1.0); Total Protein 7.6 g/dL (6.4-8.2)
[2022-08-18] MEDS ORDERED: dilTIAZem 125mg/125ml BAG KIT 125 ML IV ONE (19:45)
[2022-08-19] MEDS ORDERED: SODIUM CHLORIDE 0.9% 1,000 ML IV SCH (01:00)
[2022-08-19] MEDS ORDERED: METOPROLOL TARTRATE 1MG/1ML-5ML VIAL IV PRN (01:00)
[2022-08-19] MEDS ORDERED: MORPHINE SULFATE 4 MG/ML SYR/VIAL IV PRN (01:00)
[2022-08-19] MEDS ORDERED: ACETAMINOPHEN 325 MG TAB PO PRN (01:00)
[2022-08-19] MEDS ORDERED: NITROGLYCERIN 0.4 MG SL TAB SL PRN (01:00)
[2022-08-19] MEDS ORDERED: ONDANSETRON HCL 4 MG/2 ML VIAL IV PRN (01:00)
[2022-08-19 07:46] LABS: Calcium 9.2 mg/dL (8.5-10.1)
[2022-08-19 07:49] LABS: BUN/Creatinine Ratio 26.2
[2022-08-19 07:50] LABS: Basophils # (auto) 0 10 ^3/uL (0-0.2); Basophils % (auto) 0.4 % (0.0-2.0); Eosinophils # (auto) 0.1 10 ^3/uL (0-0.8); Eosinophils % (auto) 1.4 % (0.0-7.0); Hematocrit 30.2 % (36.0-46.0); Hemoglobin 9.7 g/dL (12.2-16.2); Lymphocytes # (auto) 1.8 10 ^3/uL (0.4-5.4); Lymphocytes % (auto) 28.2 % (10.0-50.0); Mean Corpuscular Hemoglobin 28.2 pg (28.0-32.0); Mean Corpuscular Hgb Conc. 32.3 g/dL (32.0-36.0); Mean Corpuscular Volume 87.2 fL (80.0-100.0); Monocytes # (auto) 0.7 10 ^3/uL (0-1.3); Monocytes % (auto) 10.4 % (0.0-12.0); Neutrophils # (auto) 3.8 10 ^3/uL (1.6-8.6); Neutrophils % (auto) 59.6 % (37.0-80.0); Nucleated Red Blood Cells % 0.1 %; Red Blood Cells 3.46 10^6/uL (4.0-5.20); Red Cell Distribution Width 17.6 % (11.8-14.3); White Blood Cell 6.5 10^3/uL (4.4-10.8)
[2022-08-19] MEDS ORDERED: LEVOTHYROXINE SODIUM 112 MCG TAB PO SCH (08:00)
[2022-08-19] MEDS ORDERED: ASPirin 81 mg TAB PO SCH (10:00)
[2022-08-19] MEDS ORDERED: DOCUSATE SOD 100 MG CAP PO SCH (10:00)
[2022-08-19] MEDS ORDERED: LISINOPRIL 10 MG TAB PO SCH (10:00)
[2022-08-19] MEDS ORDERED: METOPROLOL TARTRATE 25 MG TAB PO SCH (10:00)
[2022-08-19] MEDS ORDERED: ENOXAPARIN SOD 100 MG/1 ML SYRINGE SC SCH (10:00)
[2022-08-19] MEDS ORDERED: CLOPIDOGREL BISULFATE 75 MG TAB PO SCH (10:00)
[2022-08-19 13:20] VITALS: BP 130/50
[2022-08-19] MEDS ORDERED: ATORVASTATIN 20 MG TAB PO SCH (22:00)
== END 2022-08-19 14:21 | disposition home or self-care (01) | DRG 309 ==
LOC: EDUNIT# 17:31 → ER 17:31 → EDBD 17:31 → TELE 08-19 01:00
PROVIDERS: ADMIT Hospitalist; ATTEND Student in an Organized Health Care Education/Training Program
DX: I48.91 Unspecified atrial fibrillation (principal); I13.0 Hypertensive heart and chronic kidney disease with heart failure and stage 1 through stage 4 chronic kidney disease, or unspecified chronic kidney disease; Z20.822 Contact with and (suspected) exposure to COVID-19; E03.9 Hypothyroidism, unspecified; E66.9 Obesity, unspecified; G47.33 Obstructive sleep apnea (adult) (pediatric); I73.9 Peripheral vascular disease, unspecified; I25.10 Atherosclerotic heart disease of native coronary artery without angina pectoris; I50.9 Heart failure, unspecified; N18.30 Chronic kidney disease, stage 3 unspecified; Z68.39 Body mass index [BMI] 39.0-39.9, adult; Z90.710 Acquired absence of both cervix and uterus; Z88.8 Allergy status to other drugs, medicaments and biological substances; Z98.61 Coronary angioplasty status; Z88.0 Allergy status to penicillin; I25.2 Old myocardial infarction
CPT/HCPCS: 36415; 71045; 80048; 80053; 83735; 84484; 85025; 85610; 85730; 87426; 93005; 96361; 96365; 96376; 99291; G0378

== ENCOUNTER 2022-08-24 12:35 | Emergency (ER) | payer MEDICARE, BC ==
[~2022-08-24] VITALS: Ht 170.2 cm; Wt 113.6 kg
[~2022-08-24 12:35] MED LIST changes: -cloNIDine HCL 0.1 MG TAB ONE; -cloNIDine HCL 0.1 MG TAB PO ONE
[2022-08-24 12:50] VITALS: BP 176/93
== END 2022-08-24 14:27 | disposition left against medical advice (07) ==
LOC: EDBD 12:35 → ER 12:35
DX: R51.9 Headache, unspecified (principal); R94.31 Abnormal electrocardiogram [ECG] [EKG]; Z53.21 Procedure and treatment not carried out due to patient leaving prior to being seen by health care provider
CPT/HCPCS: 93005

== ENCOUNTER → 2022-08-24 | Outpatient (CLI) | payer MEDICARE, BC ==
[2022-08-24] VITALS (7 sets, daily range): BP systolic 152–196; BP diastolic 65–99
[~2022-08-24] MED LIST changes: +cloNIDine HCL 0.1 MG TAB ONE; +cloNIDine HCL 0.1 MG TAB PO ONE
== END | disposition home or self-care (01) ==
LOC: CHF HDHVI 16:43
PROVIDERS: ATTEND Internal Medicine Cardiovascular Disease
DX: I10 Essential (primary) hypertension (principal)
CPT/HCPCS: G0463

== ENCOUNTER → 2022-08-27 | Outpatient (CLI) | payer MEDICARE, BC | END | disposition home or self-care (01) | LOC: Rad HDHVI 15:16 | PROVIDERS: ATTEND Internal Medicine Cardiovascular Disease | DX: I51.7 Cardiomegaly (principal); R00.2 Palpitations; R06.02 Shortness of breath | CPT/HCPCS: 93306 ==

== ENCOUNTER → 2022-09-08 | Outpatient (CLI) | payer MEDICARE, BC ==
[2022-09-08 16:23] LABS: Basophils # (auto) 0 10 ^3/uL (0-0.2); Basophils % (auto) 0.4 % (0.0-2.0); Eosinophils # (auto) 0.1 10 ^3/uL (0-0.8); Eosinophils % (auto) 0.9 % (0.0-7.0); Hematocrit 36.1 % (36.0-46.0); Hemoglobin 11.6 g/dL (12.2-16.2); Lymphocytes % (auto) 27.2 % (10.0-50.0); Mean Corpuscular Hgb Conc. 32.1 g/dL (32.0-36.0); Mean Corpuscular Volume 90.3 fL (80.0-100.0); Monocytes # (auto) 0.5 10 ^3/uL (0-1.3); Monocytes % (auto) 6.5 % (0.0-12.0); Neutrophils # (auto) 4.7 10 ^3/uL (1.6-8.6); Red Blood Cells 3.99 10^6/uL (4.0-5.20); Red Cell Distribution Width 18.3 % (11.8-14.3); White Blood Cell 7.3 10^3/uL (4.4-10.8)
[2022-09-08 16:42] LABS: Calcium 9.7 mg/dL (8.5-10.1); Potassium 4.4 mmol/L (3.5-5.1)
[2022-09-08 16:47] LABS: BUN/Creatinine Ratio 29.9
== END | disposition home or self-care (01) ==
LOC: LAB 11:16
PROVIDERS: ATTEND Internal Medicine Cardiovascular Disease
DX: I10 Essential (primary) hypertension (principal)
CPT/HCPCS: 36415; 80048; 85025

== ENCOUNTER → 2022-09-15 | Outpatient (CLI) | payer MEDICARE, BC ==
[~2022-09-15] MED LIST changes: +ALLO300T2 PO; +APIX2.5T PO; +ETAN25IN3 SC; +LEV150T PO
[2022-09-15 11:05] LABS: Basophils # (auto) 0 10 ^3/uL (0-0.2); Basophils % (auto) 0.5 % (0.0-2.0); Eosinophils # (auto) 0.2 10 ^3/uL (0-0.8); Hematocrit 34.9 % (36.0-46.0); Hemoglobin 11.2 g/dL (12.2-16.2); Lymphocytes # (auto) 1.8 10 ^3/uL (0.4-5.4); Lymphocytes % (auto) 28.5 % (10.0-50.0); Mean Corpuscular Hemoglobin 28.9 pg (28.0-32.0); Mean Corpuscular Volume 90.2 fL (80.0-100.0); Monocytes # (auto) 0.5 10 ^3/uL (0-1.3); Monocytes % (auto) 7.6 % (0.0-12.0); Neutrophils # (auto) 3.9 10 ^3/uL (1.6-8.6); Neutrophils % (auto) 60.4 % (37.0-80.0); Nucleated Red Blood Cells % 0.1 %; Red Blood Cells 3.87 10^6/uL (4.0-5.20); Red Cell Distribution Width 18.3 % (11.8-14.3); White Blood Cell 6.4 10^3/uL (4.4-10.8)
[2022-09-15 11:20] LABS: BUN/Creatinine Ratio 42.8; Calcium 9.1 mg/dL (8.5-10.1); Potassium 4.7 mmol/L (3.5-5.1)
[2022-09-15 11:21] LABS: INR 1.07 (0.9-1.15); Partial Thromboplastin Time 28.9 sec (24.6-33.4)
== END | disposition home or self-care (01) ==
LOC: Rad HDHVI 10:13
PROVIDERS: ATTEND Internal Medicine Cardiovascular Disease
DX: I48.0 Paroxysmal atrial fibrillation (principal)
CPT/HCPCS: 36415; 71046; 80048; 85025; 85610; 85730

== ENCOUNTER 2022-09-16 06:56 | Day surgery (SDC) | payer MEDICARE, BC ==
[~2022-09-16] VITALS: Ht 162.6 cm; Wt 105.7 kg
[~2022-09-16 06:56] MED LIST changes: -CLOP75TA28 PO
== END 2022-09-16 13:19 | disposition home or self-care (01) ==
LOC: CATH 06:56
PROVIDERS: ATTEND Internal Medicine Cardiovascular Disease
DX: I27.20 Pulmonary hypertension, unspecified (principal); Z53.8 Procedure and treatment not carried out for other reasons; E78.5 Hyperlipidemia, unspecified; N30.00 Acute cystitis without hematuria; I50.9 Heart failure, unspecified; Z98.890 Other specified postprocedural states; Z95.5 Presence of coronary angioplasty implant and graft; G47.30 Sleep apnea, unspecified; Z90.710 Acquired absence of both cervix and uterus; Z88.0 Allergy status to penicillin; Z91.041 Radiographic dye allergy status; Z88.5 Allergy status to narcotic agent; Z88.8 Allergy status to other drugs, medicaments and biological substances; Z80.9 Family history of malignant neoplasm, unspecified; Z82.49 Family history of ischemic heart disease and other diseases of the circulatory system; Z82.61 Family history of arthritis; Z82.5 Family history of asthma and other chronic lower respiratory diseases; Z84.89 Family history of other specified conditions; Z20.822 Contact with and (suspected) exposure to COVID-19
CPT/HCPCS: 74176; U0003

== ENCOUNTER → 2023-03-21 | Outpatient (CLI) | payer MEDICARE, BC ==
[~2023-03-21] MED LIST changes: -LISI20TA28 PO; +LISI20TA56 PO; +PROM25TA10 PO; -PROM25TA5 PO
== END | disposition home or self-care (01) ==
LOC: Rad HDHVI 15:09
PROVIDERS: ATTEND Internal Medicine Cardiovascular Disease
DX: I70.203 Unspecified atherosclerosis of native arteries of extremities, bilateral legs (principal)
CPT/HCPCS: 93925

== ENCOUNTER → 2023-06-13 | Outpatient (CLI) | payer MEDICARE, BC ==
[2023-06-13 15:25] LABS: Basophils # (auto) 0 10 ^3/uL (0-0.2); Basophils % (auto) 0.4 % (0.0-2.0); Eosinophils # (auto) 0 10 ^3/uL (0-0.8); Eosinophils % (auto) 0.1 % (0.0-7.0); Hematocrit 32.8 % (36.0-46.0); Hemoglobin 10.6 g/dL (12.2-16.2); Lymphocytes # (auto) 1.8 10 ^3/uL (0.4-5.4); Lymphocytes % (auto) 22.4 % (10.0-50.0); Mean Corpuscular Hemoglobin 28.6 pg (28.0-32.0); Mean Corpuscular Hgb Conc. 32.2 g/dL (32.0-36.0); Mean Corpuscular Volume 88.7 fL (80.0-100.0); Monocytes # (auto) 0.6 10 ^3/uL (0-1.3); Monocytes % (auto) 7.2 % (0.0-12.0); Neutrophils # (auto) 5.6 10 ^3/uL (1.6-8.6); Neutrophils % (auto) 69.9 % (37.0-80.0); Red Cell Distribution Width 16.2 % (11.8-14.3); White Blood Cell 8.1 10^3/uL (4.4-10.8)
[2023-06-13 15:45] LABS: Alanine Aminotransferase 14 U/L (7-40); Albumin 4.3 g/dL (3.2-4.8); Alkaline Phosphatase 117 U/L (46-116); Anion Gap 8 (5-15); Aspartate Aminotransferase 14 U/L (13-40); BUN/Creatinine Ratio 22.4 (10.0-20.0); Bilirubin, Total 0.5 mg/dL (0.2-1.0); Blood Urea Nitrogen 28 mg/dL (9-23); Calcium 9.5 mg/dL (8.7-10.4); Carbon Dioxide 26 mmol/L (20-30); Chloride 106 mmol/L (98-107); Glucose 104 mg/dL (74-106); Magnesium 2.4 mg/dL (1.6-2.6); Potassium 4.7 mmol/L (3.5-5.1); Sodium 140 mmol/L (136-145); Total Protein 7.5 g/dL (5.7-8.2)
== END | disposition home or self-care (01) ==
LOC: LAB 15:12
PROVIDERS: ATTEND Internal Medicine Cardiovascular Disease
DX: I10 Essential (primary) hypertension (principal)
CPT/HCPCS: 36415; 80053; 83735; 85025

== ENCOUNTER → 2023-06-20 | Outpatient (CLI) | payer MEDICARE, BC ==
[~2023-06-20] VITALS: Ht 30.5 cm; Wt 0.5 kg
[~2023-06-20] MED LIST changes: +SODIUM FERR GLUC 62.5MG/5ML 125 MG in SODIUM CHL 0.9% 100 ML IV ONE; +SODIUM FERR GLUC 62.5MG/5ML 125 MG in SODIUM CHL 0.9% 100 ML IV SCH; +SODIUM FERRIC GLUC CPLEX 62.5MG/5ML VIAL IV ONE
[2023-06-20 13:17] VITALS: BP 137/63; PULSE 87; RESP 20; O2SAT 98
[2023-06-20 14:27] VITALS: BP 165/63; PULSE 78; RESP 20; O2SAT 98
== END | disposition home or self-care (01) ==
LOC: CHF HDHVI 13:11
PROVIDERS: ATTEND Internal Medicine Cardiovascular Disease
DX: D50.9 Iron deficiency anemia, unspecified (principal); I10 Essential (primary) hypertension
CPT/HCPCS: 96365; G0463; J2916

== ENCOUNTER → 2023-06-27 | Outpatient (CLI) | payer MEDICARE, BC ==
[~2023-06-27] MED LIST changes: -SODIUM FERR GLUC 62.5MG/5ML 125 MG in SODIUM CHL 0.9% 100 ML IV SCH
[2023-06-27 13:17] VITALS: BP 150/62; PULSE 91; RESP 18; O2SAT 98
[2023-06-27 14:32] VITALS: BP 159/76; PULSE 80; RESP 16; O2SAT 98
== END | disposition home or self-care (01) ==
LOC: CHF HDHVI 13:06
PROVIDERS: ATTEND Internal Medicine Cardiovascular Disease
DX: D50.9 Iron deficiency anemia, unspecified (principal); I10 Essential (primary) hypertension
CPT/HCPCS: 96365; G0463; J2916

== ENCOUNTER → 2023-07-04 | Outpatient (CLI) | payer MEDICARE, BC ==
[~2023-07-04] VITALS: Ht 30.5 cm; Wt 0.5 kg
[2023-07-04 13:10] VITALS: BP 112/58; PULSE 93; RESP 20; O2SAT 96
[2023-07-04 14:20] VITALS: BP 141/54; PULSE 82; RESP 20; O2SAT 96
== END | disposition home or self-care (01) ==
LOC: CHF HDHVI 13:02
PROVIDERS: ATTEND Internal Medicine Cardiovascular Disease
DX: D50.9 Iron deficiency anemia, unspecified (principal); D51.9 Vitamin B12 deficiency anemia, unspecified; I10 Essential (primary) hypertension; R53.83 Other fatigue
CPT/HCPCS: 96365; G0463; J2916

== ENCOUNTER → 2023-07-11 | Outpatient (CLI) | payer MEDICARE, BC ==
[2023-07-11 13:20] VITALS: BP 158/56; PULSE 88; RESP 18; O2SAT 95
[2023-07-11 14:31] VITALS: BP 136/58; PULSE 77; RESP 16; O2SAT 95
== END | disposition home or self-care (01) ==
LOC: CHF HDHVI 13:05
PROVIDERS: ATTEND Internal Medicine Cardiovascular Disease
DX: D50.9 Iron deficiency anemia, unspecified (principal); D51.9 Vitamin B12 deficiency anemia, unspecified; R53.83 Other fatigue; I10 Essential (primary) hypertension
CPT/HCPCS: 96365; G0463; J2916

== ENCOUNTER → 2023-07-20 | Outpatient (CLI) | payer MEDICARE, BC ==
[~2023-07-20] MED LIST changes: +LIDOCAINE 1% (LOCAL ANESTH.) PF 5ml SDV ONE; -SODIUM FERR GLUC 62.5MG/5ML 125 MG in SODIUM CHL 0.9% 100 ML IV ONE; -SODIUM FERRIC GLUC CPLEX 62.5MG/5ML VIAL IV ONE; +cefTRIAXone SOD 1,000 MG VL ONE; +cefTRIAXone W LIDOCAINE 1 GM IM IM ONE
[2023-07-20 15:30] VITALS: BP 110/62; PULSE 72; RESP 18; O2SAT 97
[2023-07-20 16:10] VITALS: BP 152/68; PULSE 85; RESP 18; O2SAT 97
== END | disposition home or self-care (01) ==
LOC: CHF HDHVI 15:31
PROVIDERS: ATTEND Internal Medicine Cardiovascular Disease
DX: N39.0 Urinary tract infection, site not specified (principal); I10 Essential (primary) hypertension
CPT/HCPCS: 96372; J0696

== ENCOUNTER → 2023-07-21 | Outpatient (CLI) | payer MEDICARE, BC ==
[~2023-07-21] MED LIST changes: -LIDOCAINE 1% (LOCAL ANESTH.) PF 5ml SDV ONE; +cefTRIAXone 1GM/50ML D5W 50 ML IV ONE; -cefTRIAXone SOD 1,000 MG VL ONE; -cefTRIAXone W LIDOCAINE 1 GM IM IM ONE
[2023-07-21 13:23] VITALS: BP 131/53; PULSE 94; RESP 16; O2SAT 94
[2023-07-21 14:15] VITALS: BP 124/60; PULSE 86; RESP 16; O2SAT 94
== END | disposition home or self-care (01) ==
LOC: CHF HDHVI 13:11
PROVIDERS: ATTEND Internal Medicine Cardiovascular Disease
DX: N39.0 Urinary tract infection, site not specified (principal); I10 Essential (primary) hypertension; D50.9 Iron deficiency anemia, unspecified; D51.9 Vitamin B12 deficiency anemia, unspecified; R53.83 Other fatigue
CPT/HCPCS: 96365; G0463; J0696

== ENCOUNTER → 2023-07-22 | Outpatient (CLI) | payer MEDICARE, BC ==
[2023-07-22 13:05] VITALS: BP 146/62; PULSE 93; RESP 16; O2SAT 97
[2023-07-22 13:45] VITALS: BP 143/65; PULSE 91; RESP 16; O2SAT 97
== END | disposition home or self-care (01) ==
LOC: CHF HDHVI 13:00
PROVIDERS: ATTEND Internal Medicine Cardiovascular Disease
DX: N39.0 Urinary tract infection, site not specified (principal); I10 Essential (primary) hypertension
CPT/HCPCS: 96365; G0463; J0696

== ENCOUNTER → 2023-08-08 | Outpatient (CLI) | payer MEDICARE, BC ==
[~2023-08-08] MED LIST changes: +ALBUTEROL SULF 2.5 MG/0.5ML(0.5%) NEB SOLN NEB ONE; +ALBUTEROL SULF 2.5 MG/0.5ML(0.5%) NEB SOLN ONE; +AZITHROMYCIN 500MG/ 250ML 250 ML IV ONE; -cefTRIAXone 1GM/50ML D5W 50 ML IV ONE; +methylPREDNISolone SOD SUCC 125 MG/2 ML VL IV ONE; +methylPREDNISolone SOD SUCC 125 MG/2 ML VL ONE
[2023-08-08 11:25] VITALS: BP 138/84; PULSE 87; RESP 20; O2SAT 98
[2023-08-08 13:58] VITALS: BP 161/72; PULSE 72; RESP 18; O2SAT 98
== END | disposition home or self-care (01) ==
LOC: CHF HDHVI 11:23
PROVIDERS: ATTEND Internal Medicine Cardiovascular Disease
DX: J11.81 Influenza due to unidentified influenza virus with encephalopathy (principal); J96.90 Respiratory failure, unspecified, unspecified whether with hypoxia or hypercapnia; I10 Essential (primary) hypertension; R53.83 Other fatigue; D51.9 Vitamin B12 deficiency anemia, unspecified
CPT/HCPCS: 94640; 96365; 96366; 96375; G0463; J0456; J2930

== ENCOUNTER → 2023-09-08 | Outpatient (CLI) | payer MEDICARE, BC ==
[~2023-09-08] MED LIST changes: -ALBUTEROL SULF 2.5 MG/0.5ML(0.5%) NEB SOLN NEB ONE; -ALBUTEROL SULF 2.5 MG/0.5ML(0.5%) NEB SOLN ONE; -AZITHROMYCIN 500MG/ 250ML 250 ML IV ONE; -methylPREDNISolone SOD SUCC 125 MG/2 ML VL IV ONE; -methylPREDNISolone SOD SUCC 125 MG/2 ML VL ONE
== END | disposition home or self-care (01) ==
LOC: Rad HDHVI 09:09
PROVIDERS: ATTEND Internal Medicine Cardiovascular Disease
DX: I08.0 Rheumatic disorders of both mitral and aortic valves (principal); R06.02 Shortness of breath; I11.9 Hypertensive heart disease without heart failure
CPT/HCPCS: 93306

== ENCOUNTER → 2023-09-12 | Outpatient (CLI) | payer MEDICARE, BC ==
[~2023-09-12] VITALS: Ht 165.1 cm; Wt 104.3 kg
== END | disposition home or self-care (01) ==
LOC: Rad HDHVI 08:39
PROVIDERS: ATTEND Internal Medicine Cardiovascular Disease
DX: I11.0 Hypertensive heart disease with heart failure (principal); I50.33 Acute on chronic diastolic (congestive) heart failure; I25.10 Atherosclerotic heart disease of native coronary artery without angina pectoris; I73.9 Peripheral vascular disease, unspecified; R06.02 Shortness of breath; I25.2 Old myocardial infarction; I25.5 Ischemic cardiomyopathy; E78.00 Pure hypercholesterolemia, unspecified; Z82.49 Family history of ischemic heart disease and other diseases of the circulatory system
CPT/HCPCS: 78452; 93017; 96374; A9500

== ENCOUNTER → 2023-10-12 | Outpatient (CLI) | payer MEDICARE, BC ==
[2023-10-12 10:50] VITALS: BP 122/50; PULSE 101; RESP 20; O2SAT 96
[2023-10-12] MEDS: cefTRIAXone 1GM/50ML D5W 50 ML IV ONE ×2 (10:50→11:29)
[2023-10-12 11:50] VITALS: BP 154/60; PULSE 73; RESP 20; O2SAT 96
== END | disposition home or self-care (01) ==
LOC: CHF HDHVI 10:51
PROVIDERS: ATTEND Internal Medicine Cardiovascular Disease
DX: N39.0 Urinary tract infection, site not specified (principal); I11.0 Hypertensive heart disease with heart failure; I50.33 Acute on chronic diastolic (congestive) heart failure; I25.10 Atherosclerotic heart disease of native coronary artery without angina pectoris; I25.5 Ischemic cardiomyopathy; I25.2 Old myocardial infarction; E78.00 Pure hypercholesterolemia, unspecified
CPT/HCPCS: 96365; G0463; J0696

== ENCOUNTER → 2023-10-13 | Outpatient (CLI) | payer MEDICARE, BC ==
[2023-10-13] MEDS: cefTRIAXone SOD 1,000 MG VL ONE (11:31)
[2023-10-13 11:32] VITALS: BP 124/59; PULSE 77; RESP 16; O2SAT 95
[2023-10-13] MEDS: cefTRIAXone 1GM/50ML D5W 50 ML IV ONE ×3 (11:32→11:48)
[2023-10-13 12:22] VITALS: BP 121/56; PULSE 75; RESP 16; O2SAT 95
== END | disposition home or self-care (01) ==
LOC: CHF HDHVI 11:30
PROVIDERS: ATTEND Internal Medicine Cardiovascular Disease
DX: N39.0 Urinary tract infection, site not specified (principal); I11.0 Hypertensive heart disease with heart failure; I50.33 Acute on chronic diastolic (congestive) heart failure; I25.10 Atherosclerotic heart disease of native coronary artery without angina pectoris; I25.2 Old myocardial infarction; I73.9 Peripheral vascular disease, unspecified; E78.00 Pure hypercholesterolemia, unspecified
CPT/HCPCS: 96365; G0463; J0696

== ENCOUNTER → 2023-10-14 | Outpatient (CLI) | payer MEDICARE, BC ==
[2023-10-14] MEDS: cefTRIAXone 1GM/50ML D5W 50 ML IV ONE ×2 (10:15→11:50)
[2023-10-14 11:33] VITALS: BP 116/50; PULSE 82; RESP 16; O2SAT 95
[2023-10-14 12:32] VITALS: BP 113/50; PULSE 77; RESP 16; O2SAT 95
== END | disposition home or self-care (01) ==
LOC: CHF HDHVI 11:29
PROVIDERS: ATTEND Internal Medicine Cardiovascular Disease
DX: N39.0 Urinary tract infection, site not specified (principal); I11.0 Hypertensive heart disease with heart failure; I50.33 Acute on chronic diastolic (congestive) heart failure; I25.10 Atherosclerotic heart disease of native coronary artery without angina pectoris; I25.2 Old myocardial infarction; E78.00 Pure hypercholesterolemia, unspecified; I73.9 Peripheral vascular disease, unspecified
CPT/HCPCS: 96365; G0463; J0696

== ENCOUNTER 2024-01-24 16:04 | Inpatient (IN) | payer MEDICARE, BC ==
[~2024-01-24] VITALS: Ht 165.1 cm; Wt 106.8 kg
[2024-01-24] MEDS: ONDANSETRON HCL 4 MG/2 ML VIAL IV ONE (16:44)
[2024-01-24] MEDS: PROMETHAZINE HCL 6.25 MG/5 ML ORAL SYRUP PO ONE (16:44)
[2024-01-24] MEDS: SODIUM CHLORIDE 0.9% 1,000 ML IV ONE (16:45)
[2024-01-24 16:49] VITALS: PULSE 91; RESP 19; O2SAT 98
[2024-01-24 17:00] LABS: Basophils # (auto) 0 10 ^3/uL (0-0.2); Eosinophils # (auto) 0 10 ^3/uL (0-0.8); Hematocrit 33.6 % (36.0-46.0); Hemoglobin 10.7 g/dL (12.2-16.2); Mean Corpuscular Hemoglobin 28.2 pg (28.0-32.0); Mean Corpuscular Volume 88.2 fL (80.0-100.0); Monocytes # (auto) 0.6 10 ^3/uL (0-1.3); Monocytes % (auto) 5.1 % (0.0-12.0); Neutrophils # (auto) 9.4 10 ^3/uL (1.6-8.6); Neutrophils % (auto) 85.9 % (37.0-80.0); Red Blood Cells 3.81 10^6/uL (4.0-5.20); Red Cell Distribution Width 17.7 % (11.8-14.3); White Blood Cell 10.9 10^3/uL (4.4-10.8)
[2024-01-24 17:17] LABS: Chloride 109 mmol/L (98-107); Potassium 5.2 mmol/L (3.5-5.1); Sodium 140 mmol/L (136-145)
[2024-01-24 17:18] LABS: Anion Gap 10 (5-15); Calcium 9.9 mg/dL (8.5-10.1); Carbon Dioxide 21 mmol/L (20-30)
[2024-01-24 17:23] LABS: BUN/Creatinine Ratio 45.5 (10.0-20.0); Blood Urea Nitrogen 60 mg/dL (9-23); Glucose 113 mg/dL (74-106)
[2024-01-24 17:49] LABS: Bilirubin, Total 0.6 mg/dL (0.2-1.0)
[2024-01-24] MEDS ORDERED: HYDROcodone-ACET 5/325MG TAB PO PRN (20:00)
[2024-01-24] MEDS ORDERED: NITROGLYCERIN 0.4 MG SL TAB SL PRN (20:00)
[2024-01-24] MEDS ORDERED: MORPHINE SULFATE INJ 2 MG/ml SYRG IV PRN ×2 (20:00)
[2024-01-24] MEDS ORDERED: ACETAMINOPHEN 325 MG TAB PO PRN (20:00)
[2024-01-24] MEDS ORDERED: ONDANSETRON HCL 4 MG/2 ML VIAL IV PRN (20:00)
[2024-01-24] MEDS: ALBUTEROL SULF 2.5 MG/0.5ML(0.5%) NEB SOLN NEB ONE (20:00)
[2024-01-24] MEDS ORDERED: DOCUSATE SOD 100 MG CAP PO PRN (20:00)
[2024-01-24] MEDS: ALBUTEROL SULF 2.5 MG/0.5ML(0.5%) NEB SOLN ONE (20:02)
[2024-01-24 21:00] VITALS: BP 123/97; PULSE 75; RESP 20; TEMP 98.4; O2SAT 94
[2024-01-24 21:01] VITALS: BP 123/78; PULSE 68; PULSE 75; RESP 18; RESP 20; TEMP 98.4; O2SAT 94; O2SAT 95
[2024-01-24] MEDS: FUROSEMIDE 20 MG/2 ML VIAL IV ONE (21:03)
[2024-01-24] MEDS: DEXTROSE (50%) 50ML SYRG IV ONE (21:04)
[2024-01-24] MEDS: InsuLIN REG 1unit/0.01ml Soln (100units/ml) IV ONE (21:05)
[2024-01-24] MEDS: SODIUM BICARB 8.4% 50Meq/50ml SYR INJ IV ONE (21:05)
[2024-01-24] MEDS ORDERED: LISI10TA34 PO (21:13)
[2024-01-24] MEDS: metroNIDAZOLE 500MG/100ML 100 ML IV SCH (22:00)
[2024-01-24] MEDS: CIPROFLOXACIN 400MG/200ML 200 ML IV SCH (22:00)
[2024-01-24] MEDS ORDERED: LISINOPRIL 5 MG TAB PO SCH (22:00)
[2024-01-24 22:33] LABS: Urine Bacteria None Seen /hpf (None Seen)
[2024-01-24 22:44] LABS: Urine Blood Negative /uL (Negative); Urine Clarity Clear (Clear); Urine Color Light-Yellow (Yellow); Urine Protein, UAD Negative (Negative); Urine Specific Gravity 1.019 (1.001-1.035); Urine Urobilinogen Normal (Negative); Urine WBC 1 /hpf (0 - 5)
[2024-01-24 23:10] VITALS: O2SAT 95
[2024-01-25] VITALS (9 sets, daily range): BP systolic 120–140; BP diastolic 36–95; PULSE 58–98; RESP 16–22; TEMP 97.5–98.2; O2SAT 93–99
[2024-01-25 06:25] LABS: Basophils # (auto) 0 10 ^3/uL (0-0.2); Basophils % (auto) 0.2 % (0.0-2.0); Eosinophils # (auto) 0 10 ^3/uL (0-0.8); Hematocrit 32.7 % (36.0-46.0); Hemoglobin 10.3 g/dL (12.2-16.2); Lymphocytes # (auto) 1.7 10 ^3/uL (0.4-5.4); Lymphocytes % (auto) 16.2 % (10.0-50.0); Mean Corpuscular Hemoglobin 28.6 pg (28.0-32.0); Mean Corpuscular Hgb Conc. 31.7 g/dL (32.0-36.0); Mean Corpuscular Volume 90.3 fL (80.0-100.0); Monocytes # (auto) 0.7 10 ^3/uL (0-1.3); Monocytes % (auto) 6.9 % (0.0-12.0); Neutrophils # (auto) 8.3 10 ^3/uL (1.6-8.6); Neutrophils % (auto) 76.7 % (37.0-80.0); Red Blood Cells 3.62 10^6/uL (4.0-5.20); Red Cell Distribution Width 18.1 % (11.8-14.3); White Blood Cell 10.8 10^3/uL (4.4-10.8)
[2024-01-25 06:49] LABS: Alanine Aminotransferase 14 U/L (7-40); Alkaline Phosphatase 92 U/L (46-116); Anion Gap 9 (5-15); Aspartate Aminotransferase 12 U/L (13-40); BUN/Creatinine Ratio 29.8 (10.0-20.0); Bilirubin, Total 0.6 mg/dL (0.2-1.0); Calcium 9.8 mg/dL (8.7-10.4); Carbon Dioxide 22 mmol/L (20-30); Chloride 107 mmol/L (98-107); Glucose 98 mg/dL (74-106); Potassium 5.1 mmol/L (3.5-5.1); Sodium 138 mmol/L (136-145); Total Protein 7.1 g/dL (5.7-8.2)
[2024-01-25 07:05] LABS: Blood Urea Nitrogen 39 mg/dL (9-23)
[2024-01-25] MEDS: PANTOPRAZOLE 40 MG/10 ML VIAL INJ IV SCH (09:42)
[2024-01-25] MEDS: metroNIDAZOLE 500 MG TAB PO SCH (14:54)
[2024-01-25 17:01] LABS: T3 Total 0.69 ng/mL (0.60-1.81)
[2024-01-25 17:02] LABS: Free T4 (Free Thyroxine) 1.43 ng/dL (0.89-1.76)
[2024-01-25] MEDS: PROMETHAZINE HCL 6.25 MG/5 ML ORAL SYRUP PO PRN (20:37)
[2024-01-26] VITALS (10 sets, daily range): BP systolic 100–136; BP diastolic 30–93; PULSE 57–96; RESP 14–20; TEMP 97.7–98.6; O2SAT 90–100
[2024-01-26 05:41] LABS: Basophils # (auto) 0 10 ^3/uL (0-0.2); Basophils % (auto) 0.1 % (0.0-2.0); Eosinophils # (auto) 0 10 ^3/uL (0-0.8); Eosinophils % (auto) 0.4 % (0.0-7.0); Hematocrit 29.7 % (36.0-46.0); Hemoglobin 9.5 g/dL (12.2-16.2); Lymphocytes # (auto) 1.6 10 ^3/uL (0.4-5.4); Lymphocytes % (auto) 21.2 % (10.0-50.0); Mean Corpuscular Hemoglobin 28.7 pg (28.0-32.0); Mean Corpuscular Volume 89.7 fL (80.0-100.0); Monocytes # (auto) 0.8 10 ^3/uL (0-1.3); Monocytes % (auto) 10.5 % (0.0-12.0); Neutrophils % (auto) 67.8 % (37.0-80.0); Nucleated Red Blood Cells % 0.1 %; Red Blood Cells 3.31 10^6/uL (4.0-5.20); Red Cell Distribution Width 17.6 % (11.8-14.3); White Blood Cell 7.4 10^3/uL (4.4-10.8)
[2024-01-26 05:47] LABS: Chloride 106 mmol/L (98-107); Potassium 5.5 mmol/L (3.5-5.1); Sodium 135 mmol/L (136-145)
[2024-01-26 05:48] LABS: Anion Gap 5 (5-15); Carbon Dioxide 24 mmol/L (20-30)
[2024-01-26 05:49] LABS: Calcium 9.5 mg/dL (8.7-10.4)
[2024-01-26 05:53] LABS: BUN/Creatinine Ratio 29.8 (10.0-20.0); Blood Urea Nitrogen 36 mg/dL (9-23); Glucose 99 mg/dL (74-106)
[2024-01-26 05:54] LABS: Magnesium 2.4 mg/dL (1.6-2.6)
[2024-01-26] MEDS: ALBUTEROL SULF 2.5 MG/0.5ML(0.5%) NEB SOLN NEB ONE (07:49)
[2024-01-26] MEDS: SODIUM CHLORIDE 0.9% 1,000 ML IV ONE (10:02)
[2024-01-26] MEDS: FUROSEMIDE 40 MG/4 ML VIAL IV ONE ×2 (14:00→15:13)
[2024-01-26] MEDS: SODIUM ZIRCONIUM CYCL 10 GM PAK PO ONE (15:10)
[2024-01-26] MEDS: SODIUM CHLORIDE 0.9% 500 ML IV ONE (15:13)
[2024-01-26] MEDS: EPOETIN ALFA-EPBX 10,000 UNIT/1ML VIAL SC ONE (21:10)
[2024-01-27 06:00] VITALS: BP 130/40; PULSE 71; RESP 20; TEMP 97.6; O2SAT 92
[2024-01-27 07:12] LABS: Anion Gap 4 (5-15); Carbon Dioxide 27 mmol/L (20-30); Chloride 105 mmol/L (98-107); Potassium 4.6 mmol/L (3.5-5.1); Sodium 136 mmol/L (136-145)
[2024-01-27 07:13] LABS: Calcium 9.3 mg/dL (8.5-10.1)
[2024-01-27 07:18] LABS: BUN/Creatinine Ratio 32.3 (10.0-20.0); Blood Urea Nitrogen 41 mg/dL (9-23); Glucose 111 mg/dL (74-106)
[2024-01-27 09:00] VITALS: BP 124/47; PULSE 64; RESP 18; TEMP 97.6; O2SAT 97
[2024-01-27] MEDS: APIXABAN 2.5 MG TAB PO SCH (10:48)
[2024-01-27 13:00] VITALS: BP 105/41; PULSE 76; RESP 16; TEMP 97.8; O2SAT 94
== END 2024-01-27 16:41 | disposition home or self-care (01) | DRG 391 ==
LOC: ER 16:04 → OVERFLOW 19:56 → CENTRAL 20:30
PROVIDERS: ADMIT Nurse Practitioner Family; ATTEND Internal Medicine
DX: A08.4 Viral intestinal infection, unspecified (principal); N17.0 Acute kidney failure with tubular necrosis; J96.10 Chronic respiratory failure, unspecified whether with hypoxia or hypercapnia; I13.0 Hypertensive heart and chronic kidney disease with heart failure and stage 1 through stage 4 chronic kidney disease, or unspecified chronic kidney disease; E87.5 Hyperkalemia; N18.32 Chronic kidney disease, stage 3b; G89.29 Other chronic pain; D64.9 Anemia, unspecified; E66.9 Obesity, unspecified; I25.10 Atherosclerotic heart disease of native coronary artery without angina pectoris; I50.9 Heart failure, unspecified; E03.9 Hypothyroidism, unspecified; I08.0 Rheumatic disorders of both mitral and aortic valves; Z88.0 Allergy status to penicillin; Z68.39 Body mass index [BMI] 39.0-39.9, adult; I25.2 Old myocardial infarction; Z82.49 Family history of ischemic heart disease and other diseases of the circulatory system; Z90.710 Acquired absence of both cervix and uterus; Z95.5 Presence of coronary angioplasty implant and graft
CPT/HCPCS: 36415; 74176; 80048; 80053; 81001; 82247; 82962; 83036; 83690; 83735; 83880; 84075; 84132; 84439; 84443; 84450; 84460; 84480; 84484; 85025; 93306; 94640; 96361; 96374; 96375; C9113; G0378; J1815; J2405

== ENCOUNTER → 2024-02-15 | Outpatient (CLI) | payer MEDICARE, BC ==
[~2024-02-15] VITALS: Ht 30.5 cm; Wt 0.5 kg
[~2024-02-15] MED LIST changes: -ETAN25IN3 SC; -LEV150T PO; +LISI10TA34 PO
[2024-02-15 11:15] VITALS: BP 148/59; PULSE 77; RESP 18; O2SAT 97
[2024-02-15] MEDS: cefTRIAXone 1GM/50ML D5W 50 ML IV ONE ×2 (11:37→11:45)
[2024-02-15] MEDS: SODIUM CHLORIDE 0.9% 500 ML IV ONE (11:45)
[2024-02-15 13:30] VITALS: BP 148/59; PULSE 77; RESP 18; O2SAT 97
== END | disposition home or self-care (01) ==
LOC: CHF HDHVI 11:14
PROVIDERS: ATTEND Internal Medicine Cardiovascular Disease
DX: N39.0 Urinary tract infection, site not specified (principal); I13.0 Hypertensive heart and chronic kidney disease with heart failure and stage 1 through stage 4 chronic kidney disease, or unspecified chronic kidney disease; I50.9 Heart failure, unspecified; N18.32 Chronic kidney disease, stage 3b; I25.10 Atherosclerotic heart disease of native coronary artery without angina pectoris; I25.2 Old myocardial infarction; J96.10 Chronic respiratory failure, unspecified whether with hypoxia or hypercapnia; E03.9 Hypothyroidism, unspecified; Z95.5 Presence of coronary angioplasty implant and graft
CPT/HCPCS: 96361; 96365; G0463; J0696; J7040; 96360

== ENCOUNTER → 2024-02-17 | Outpatient (CLI) | payer MEDICARE, BC ==
[2024-02-17 12:55] VITALS: BP 138/50; PULSE 85; RESP 20; O2SAT 98
[2024-02-17] MEDS: cefTRIAXone 1GM/50ML D5W 50 ML IV ONE ×2 (12:58→13:07)
[2024-02-17] MEDS: SODIUM CHLORIDE 0.9% 500 ML IV ONE (13:00)
[2024-02-17 15:30] VITALS: BP 154/60; PULSE 71; RESP 18; O2SAT 98
== END | disposition home or self-care (01) ==
LOC: CHF HDHVI 12:41
PROVIDERS: ATTEND Internal Medicine Cardiovascular Disease
DX: N39.0 Urinary tract infection, site not specified (principal); E86.0 Dehydration; I13.0 Hypertensive heart and chronic kidney disease with heart failure and stage 1 through stage 4 chronic kidney disease, or unspecified chronic kidney disease; I50.9 Heart failure, unspecified; N18.32 Chronic kidney disease, stage 3b; I25.10 Atherosclerotic heart disease of native coronary artery without angina pectoris; I25.2 Old myocardial infarction; J96.10 Chronic respiratory failure, unspecified whether with hypoxia or hypercapnia; E03.9 Hypothyroidism, unspecified; Z95.5 Presence of coronary angioplasty implant and graft
CPT/HCPCS: 96361; 96365; G0463; J0696; J7040; 96360; 96367

== ENCOUNTER → 2024-02-20 | Outpatient (CLI) | payer MEDICARE, BC ==
[2024-02-20] MEDS: cefTRIAXone 1GM/50ML D5W 50 ML IV ONE ×2 (12:19→12:52)
[2024-02-20 12:35] VITALS: BP 124/58; PULSE 76; RESP 20; O2SAT 95
[2024-02-20] MEDS: SODIUM CHLORIDE 0.9% 500 ML IV ONE (13:05)
[2024-02-20 15:39] VITALS: BP 161/67; PULSE 66; RESP 20; O2SAT 95
== END | disposition home or self-care (01) ==
LOC: CHF HDHVI 12:41
PROVIDERS: ATTEND Internal Medicine Cardiovascular Disease
DX: N39.0 Urinary tract infection, site not specified (principal); E86.0 Dehydration; I25.10 Atherosclerotic heart disease of native coronary artery without angina pectoris; J96.11 Chronic respiratory failure with hypoxia; I13.0 Hypertensive heart and chronic kidney disease with heart failure and stage 1 through stage 4 chronic kidney disease, or unspecified chronic kidney disease; I50.9 Heart failure, unspecified; N18.32 Chronic kidney disease, stage 3b; E03.9 Hypothyroidism, unspecified; I25.2 Old myocardial infarction; Z90.710 Acquired absence of both cervix and uterus; Z88.0 Allergy status to penicillin; Z95.1 Presence of aortocoronary bypass graft
CPT/HCPCS: 96361; 96365; G0463; J0696; J7040; 96360

== ENCOUNTER → 2024-02-21 | Outpatient (CLI) | payer MEDICARE, BC ==
[~2024-02-21] VITALS: Ht 30.5 cm; Wt 0.5 kg
[2024-02-21] MEDS: cefTRIAXone 1GM/50ML D5W 50 ML IV ONE ×2 (12:09→12:52)
[2024-02-21 12:50] VITALS: BP 154/63; PULSE 74; RESP 18; O2SAT 97
[2024-02-21] MEDS: SODIUM CHLORIDE 0.9% 500 ML IV ONE (12:52)
[2024-02-21 14:58] VITALS: BP 144/58; PULSE 68; RESP 18; O2SAT 97
== END | disposition home or self-care (01) ==
LOC: CHF HDHVI 12:48
PROVIDERS: ATTEND Internal Medicine Cardiovascular Disease
DX: N39.0 Urinary tract infection, site not specified (principal); E86.0 Dehydration; I25.10 Atherosclerotic heart disease of native coronary artery without angina pectoris; J96.11 Chronic respiratory failure with hypoxia; E03.9 Hypothyroidism, unspecified; I25.2 Old myocardial infarction; I13.0 Hypertensive heart and chronic kidney disease with heart failure and stage 1 through stage 4 chronic kidney disease, or unspecified chronic kidney disease; N18.32 Chronic kidney disease, stage 3b; I50.9 Heart failure, unspecified; Z95.1 Presence of aortocoronary bypass graft; Z90.710 Acquired absence of both cervix and uterus; Z88.0 Allergy status to penicillin
CPT/HCPCS: 96361; 96365; G0463; J0696; J7040; 96360

== ENCOUNTER → 2024-03-05 | Outpatient (CLI) | payer MEDICARE, BC ==
[~2024-03-05] MED LIST changes: +FURO20TA3 PO; +LEV150T PO; +POM; +PROM12.57 PO
[2024-03-05 09:20] VITALS: BP 186/79; PULSE 73; RESP 20; O2SAT 95
[2024-03-05 09:31] VITALS: BP 169/73; PULSE 80; RESP 20; O2SAT 95
== END | disposition home or self-care (01) ==
LOC: Rad HDHVI 09:10
PROVIDERS: ATTEND Internal Medicine Cardiovascular Disease
DX: Z01.818 Encounter for other preprocedural examination (principal); I10 Essential (primary) hypertension; I51.7 Cardiomegaly
CPT/HCPCS: 71046; 93005; G0463

== ENCOUNTER 2024-03-08 07:05 | Day surgery (SDC) | payer MEDICARE, BC ==
[2024-03-05 12:06] LABS: Basophils # (auto) 0 10 ^3/uL (0-0.2); Basophils % (auto) 0.4 % (0.0-2.0); Eosinophils # (auto) 0.1 10 ^3/uL (0-0.8); Eosinophils % (auto) 1.3 % (0.0-7.0); Hematocrit 30.4 % (36.0-46.0); Hemoglobin 9.9 g/dL (12.2-16.2); Lymphocytes # (auto) 1.4 10 ^3/uL (0.4-5.4); Lymphocytes % (auto) 21.3 % (10.0-50.0); Mean Corpuscular Hemoglobin 29.1 pg (28.0-32.0); Mean Corpuscular Hgb Conc. 32.5 g/dL (32.0-36.0); Mean Corpuscular Volume 89.3 fL (80.0-100.0); Monocytes # (auto) 0.6 10 ^3/uL (0-1.3); Monocytes % (auto) 8.4 % (0.0-12.0); Neutrophils # (auto) 4.5 10 ^3/uL (1.6-8.6); Neutrophils % (auto) 68.6 % (37.0-80.0); Red Cell Distribution Width 17.7 % (11.8-14.3); White Blood Cell 6.6 10^3/uL (4.4-10.8)
[2024-03-05 12:24] LABS: INR 1.1 (0.9-1.15); Partial Thromboplastin Time 27.5 SEC (24.5-34.5); Prothrombin Time 11.6 sec (9.3-11.8)
[2024-03-05 12:32] LABS: Urine Blood Negative /uL (Negative); Urine Clarity Clear (Clear); Urine Color Light-Yellow (Yellow); Urine Protein, UAD Negative (Negative); Urine Specific Gravity 1.016 (1.001-1.035); Urine Urobilinogen Normal (Negative)
[2024-03-05 13:31] LABS: Anion Gap 7 (5-15); Carbon Dioxide 22 mmol/L (20-30); Chloride 112 mmol/L (98-107); Potassium 4.4 mmol/L (3.5-5.1); Sodium 141 mmol/L (136-145)
[2024-03-05 13:32] LABS: Calcium 10.2 mg/dL (8.7-10.4)
[2024-03-05 13:37] LABS: BUN/Creatinine Ratio 34.6 (10.0-20.0); Blood Urea Nitrogen 36 mg/dL (9-23); Glucose 108 mg/dL (74-106)
[2024-03-08] VITALS (8 sets, daily range): BP systolic 108–155; BP diastolic 48–60; PULSE 68–85; RESP 12–17; O2SAT 92–100
[~2024-03-08] VITALS: Ht 165.1 cm; Wt 101.6 kg
[2024-03-08] MEDS ORDERED: IOHEXOL 350 MG/ML 100ML IJ ONE ×2 (07:55→09:18)
[2024-03-08] MEDS ORDERED: HEPARIN IN NS 1000Units/500mL 1,500 ML ONE (07:55)
[2024-03-08] MEDS ORDERED: LIDOCAINE 2%HCL (LOCAL ANESTH.) INJ 20ML MDV ONE ×2 (08:22→09:10)
[2024-03-08] MEDS ORDERED: diphenhdrAMINE HCL 50 MG/1 ML VL ONE (08:23)
[2024-03-08] MEDS ORDERED: ANGIOMAX 250 MG VIAL IV ONE (08:23)
[2024-03-08] MEDS ORDERED: methylPREDNISolone SOD SUCC 125 MG/2 ML VL ONE (08:23)
[2024-03-08] MEDS ORDERED: fentaNYL CITRATE 100 MCG/2 ML VL ONE (08:24)
[2024-03-08] MEDS ORDERED: FAMOTIDINE (10MG/ML) 2ML VL IV ONE (08:25)
[2024-03-08] MEDS ORDERED: SODIUM CHL 0.9% 0 ML ONE (08:25)
[2024-03-08] MEDS ORDERED: MIDAZOLAM HCL 2MG/2ML 2ml VIAL (1mg/ml) ONE (08:25)
[2024-03-08] MEDS ORDERED: ONDANSETRON HCL 4 MG/2 ML VIAL ONE ×2 (08:57→09:47)
[2024-03-08] MEDS ORDERED: HYDROmorphone HCL 2 MG/ML VL/or syr ONE (09:07)
[2024-03-08] MEDS: SODIUM CHLORIDE 0.9% 500 ML IV ONE (10:30)
== END 2024-03-08 12:40 | disposition home or self-care (01) ==
LOC: CATH 07:05
PROVIDERS: ATTEND Internal Medicine Cardiovascular Disease
DX: R06.02 Shortness of breath (principal); I25.10 Atherosclerotic heart disease of native coronary artery without angina pectoris; I35.0 Nonrheumatic aortic (valve) stenosis; I25.2 Old myocardial infarction; I11.0 Hypertensive heart disease with heart failure; I50.9 Heart failure, unspecified; G47.30 Sleep apnea, unspecified; E78.5 Hyperlipidemia, unspecified; I70.212 Atherosclerosis of native arteries of extremities with intermittent claudication, left leg; I48.91 Unspecified atrial fibrillation; Z87.891 Personal history of nicotine dependence; Z95.5 Presence of coronary angioplasty implant and graft; Z79.899 Other long term (current) drug therapy; Z88.6 Allergy status to analgesic agent; Z91.041 Radiographic dye allergy status; Z88.0 Allergy status to penicillin; Z88.8 Allergy status to other drugs, medicaments and biological substances; Z91.09 Other allergy status, other than to drugs and biological substances; Z86.718 Personal history of other venous thrombosis and embolism; Z90.710 Acquired absence of both cervix and uterus
CPT/HCPCS: 36415; 80048; 81003; 85025; 85610; 85730; 93460; C1760; C1894; J1170; J1200; J1644; J2250; J2405; J2919; J3010; J3490; Q9967; 99152; 99153

== ENCOUNTER 2024-03-28 01:16 | Inpatient (IN) | payer MEDICARE, BC ==
[2024-03-28] VITALS (7 sets, daily range): BP systolic 122–152; BP diastolic 58–75; PULSE 81–159; RESP 14–37; TEMP 98–98.7; O2SAT 96–99
[~2024-03-28] VITALS: Ht 165.1 cm; Wt 112.5 kg
[~2024-03-28 01:16] MED LIST changes: -LEVO175T2 PO; -LISI10TA34 PO
[2024-03-28] MEDS: ADENOSINE 6 MG/2 ML INJ IV ONE (01:30)
[2024-03-28 02:04] LABS: Albumin 4.3 g/dL (3.2-4.8); Alkaline Phosphatase 87 U/L (46-116); Anion Gap 14 (5-15); Aspartate Aminotransferase 13 U/L (13-40); BUN/Creatinine Ratio 17.9 (10.0-20.0); Blood Urea Nitrogen 21 mg/dL (9-23); Calcium 9.8 mg/dL (8.7-10.4); Carbon Dioxide 18 mmol/L (20-30); Chloride 111 mmol/L (98-107); Glucose 156 mg/dL (74-106); Potassium 3.7 mmol/L (3.5-5.1); Sodium 143 mmol/L (136-145)
[2024-03-28 02:05] LABS: Bilirubin, Total 0.3 mg/dL (0.2-1.0); Total Protein 7.6 g/dL (5.7-8.2)
[2024-03-28 02:06] LABS: Basophils # (auto) 0 10 ^3/uL (0-0.2); Basophils % (auto) 0.4 % (0.0-2.0); Eosinophils # (auto) 0.1 10 ^3/uL (0-0.8); Eosinophils % (auto) 1.5 % (0.0-7.0); Hematocrit 33.3 % (36.0-46.0); Hemoglobin 10.9 g/dL (12.2-16.2); Lymphocytes # (auto) 2.3 10 ^3/uL (0.4-5.4); Lymphocytes % (auto) 31.4 % (10.0-50.0); Mean Corpuscular Hgb Conc. 32.7 g/dL (32.0-36.0); Mean Corpuscular Volume 88.7 fL (80.0-100.0); Monocytes # (auto) 0.6 10 ^3/uL (0-1.3); Monocytes % (auto) 7.9 % (0.0-12.0); Neutrophils # (auto) 4.3 10 ^3/uL (1.6-8.6); Neutrophils % (auto) 58.8 % (37.0-80.0); Nucleated Red Blood Cells % 0.1 %; Red Blood Cells 3.76 10^6/uL (4.0-5.20); Red Cell Distribution Width 17.1 % (11.8-14.3); White Blood Cell 7.2 10^3/uL (4.4-10.8)
[2024-03-28 02:12] LABS: Alanine Aminotransferase < 9 U/L (7-40)
[2024-03-28] MEDS: SODIUM CHLORIDE 0.9% 1,000 ML IV ONE (02:37)
[2024-03-28] MEDS ORDERED: MORPHINE SULFATE INJ 2 MG/ml SYRG IV PRN (05:00)
[2024-03-28] MEDS ORDERED: NITROGLYCERIN 0.4 MG SL TAB SL PRN (05:00)
[2024-03-28] MEDS ORDERED: ONDANSETRON HCL 4 MG/2 ML VIAL IV PRN (05:00)
[2024-03-28] MEDS: ACETAMINOPHEN 325 MG TAB PO PRN (08:34)
[2024-03-28] MEDS: ASPirin 81 mg TAB PO SCH (10:00)
[2024-03-28] MEDS: FUROSEMIDE 20 MG TAB PO SCH (10:00)
[2024-03-28] MEDS ORDERED: LISINOPRIL 5 MG TAB PO SCH (10:00)
[2024-03-28] MEDS: APIXABAN 2.5 MG TAB PO SCH (10:04)
[2024-03-28] MEDS: LISINOPRIL 20 MG TAB PO SCH (10:05)
[2024-03-28 10:16] LABS: Urine Bacteria None Seen /hpf (None Seen)
[2024-03-28 10:39] LABS: Urine Blood TRACE /uL (Negative); Urine Clarity Clear (Clear); Urine Color Light-Yellow (Yellow); Urine Mucus FEW (None Seen); Urine Protein, UAD Negative (Negative); Urine Specific Gravity 1.018 (1.001-1.035); Urine Urobilinogen Normal (Negative); Urine WBC 13 /hpf (0 - 5)
[2024-03-28] MEDS: LEVOTHYROXINE SODIUM 50 MCG TAB PO ONE (10:47)
[2024-03-28] MEDS: POLYETHYLENE GLYCOL 17 GM PWDR PO ONE (10:47)
[2024-03-28] MEDS: METOCLOPRAMIDE HCL 10 MG TAB PO ONE (11:45)
[2024-03-28] MEDS ORDERED: HYDROcodone-ACET 5/325MG TAB PO PRN (11:45)
[2024-03-28] MEDS ORDERED: KETOROLAC TROMETH 30 MG/ML 1ML VIAL IV PRN (11:45)
[2024-03-28] MEDS: KETOROLAC TROMETH 30 MG/ML 1ML VIAL IV ONE (12:30)
[2024-03-28] MEDS: ATORVASTATIN 20 MG TAB PO SCH (21:20)
[2024-03-29] VITALS (8 sets, daily range): BP systolic 130–162; BP diastolic 59–80; PULSE 69–82; RESP 14–18; TEMP 98–98.5; O2SAT 95–98
[2024-03-29 07:07] LABS: Chloride 110 mmol/L (98-107); Potassium 3.7 mmol/L (3.5-5.1); Sodium 142 mmol/L (136-145)
[2024-03-29 07:08] LABS: Anion Gap 8 (5-15); Calcium 9.2 mg/dL (8.7-10.4); Carbon Dioxide 24 mmol/L (20-30)
[2024-03-29 07:13] LABS: BUN/Creatinine Ratio 22.9 (10.0-20.0); Blood Urea Nitrogen 24 mg/dL (9-23); Glucose 95 mg/dL (74-106)
[2024-03-29] MEDS: METOPROLOL SUCCINATE XL 50 MG TAB PO SCH (10:00)
[2024-03-30 00:56] VITALS: BP 153/65; PULSE 77; RESP 17; TEMP 98.2; O2SAT 94
[2024-03-30 05:00] VITALS: BP 134/58; PULSE 70; RESP 18; TEMP 98.3; O2SAT 94
[2024-03-30 08:00] VITALS: PULSE 64
[2024-03-30 09:00] VITALS: BP 156/75; PULSE 69; RESP 18; TEMP 98.2; O2SAT 95
[2024-03-30 13:00] VITALS: BP 135/71; PULSE 73; RESP 18; TEMP 98.2; O2SAT 97
[2024-03-30 15:13] VITALS: BP 156/75; PULSE 69; TEMP 98.2
== END 2024-03-30 16:30 | disposition home or self-care (01) | DRG 309 ==
LOC: EDBD 01:16 → ER 01:16 → TELE 05:02 → TELE-WESTW 14:00
PROVIDERS: ADMIT Nurse Practitioner; ATTEND Internal Medicine
DX: I48.91 Unspecified atrial fibrillation (principal); I13.0 Hypertensive heart and chronic kidney disease with heart failure and stage 1 through stage 4 chronic kidney disease, or unspecified chronic kidney disease; Z68.41 Body mass index [BMI] 40.0-44.9, adult; I47.10 Supraventricular tachycardia, unspecified; D64.9 Anemia, unspecified; E78.5 Hyperlipidemia, unspecified; E66.9 Obesity, unspecified; E03.9 Hypothyroidism, unspecified; I50.9 Heart failure, unspecified; N18.9 Chronic kidney disease, unspecified; J45.909 Unspecified asthma, uncomplicated; I25.10 Atherosclerotic heart disease of native coronary artery without angina pectoris; I35.0 Nonrheumatic aortic (valve) stenosis; G89.29 Other chronic pain; I25.2 Old myocardial infarction; Z86.718 Personal history of other venous thrombosis and embolism; Z86.711 Personal history of pulmonary embolism; Z88.0 Allergy status to penicillin; Z88.8 Allergy status to other drugs, medicaments and biological substances; Z91.041 Radiographic dye allergy status; Z95.5 Presence of coronary angioplasty implant and graft; Z90.710 Acquired absence of both cervix and uterus; Z98.51 Tubal ligation status; Z79.01 Long term (current) use of anticoagulants; Z82.49 Family history of ischemic heart disease and other diseases of the circulatory system; Z87.891 Personal history of nicotine dependence
CPT/HCPCS: 36415; 71045; 80048; 80053; 81001; 83880; 84443; 84484; 85025; 92960; 93005; 96361; 96374; 99291; G0378; J0153; J1885

== ENCOUNTER → 2024-06-18 | Outpatient (CLI) | payer MEDICARE, BC ==
[2024-06-18 09:25] VITALS: BP 176/64; PULSE 95; RESP 22; O2SAT 97
[2024-06-18] MEDS: SODIUM FERR GLUC 125 MG/in NS 100 ML IVPB KIT IV ONE (09:25)
[2024-06-18] MEDS: KETOROLAC TROMETH 60MG/2ML VIAL ONE (09:33)
[2024-06-18] MEDS: KETOROLAC TROMETH 60MG/2ML VIAL IM ONE (09:35)
[2024-06-18] MEDS: SODIUM FERRIC GLUC CPLEX 62.5MG/5ML VIAL IV ONE (09:53)
[2024-06-18 11:00] VITALS: BP 156/64; PULSE 73; RESP 18; O2SAT 97
== END | disposition home or self-care (01) ==
LOC: CHF HDHVI 09:15
PROVIDERS: ATTEND Internal Medicine Cardiovascular Disease
DX: D64.9 Anemia, unspecified (principal); G89.29 Other chronic pain; M25.519 Pain in unspecified shoulder; I13.0 Hypertensive heart and chronic kidney disease with heart failure and stage 1 through stage 4 chronic kidney disease, or unspecified chronic kidney disease; I50.9 Heart failure, unspecified; N18.9 Chronic kidney disease, unspecified; I25.10 Atherosclerotic heart disease of native coronary artery without angina pectoris; J45.909 Unspecified asthma, uncomplicated; I48.0 Paroxysmal atrial fibrillation; Z79.01 Long term (current) use of anticoagulants; Z87.891 Personal history of nicotine dependence; Z95.5 Presence of coronary angioplasty implant and graft
CPT/HCPCS: 96365; 96372; G0463; J1885; J2916

== ENCOUNTER → 2024-07-02 | Outpatient (CLI) | payer MEDICARE, BC ==
[2024-07-02 09:47] VITALS: BP 140/63; PULSE 81; RESP 20; O2SAT 97
[2024-07-02] MEDS: SODIUM FERRIC GLUC CPLEX 62.5MG/5ML VIAL IV ONE (09:49)
[2024-07-02] MEDS: PATIENTS OWN MEDICATION (FERRLECIT 125 MG) IV ONE (10:00)
[2024-07-02 11:30] VITALS: BP 156/73; PULSE 70; RESP 20; O2SAT 97
== END | disposition home or self-care (01) ==
LOC: CHF HDHVI 09:42
PROVIDERS: ATTEND Internal Medicine Cardiovascular Disease
DX: D64.9 Anemia, unspecified (principal); R53.83 Other fatigue; I13.0 Hypertensive heart and chronic kidney disease with heart failure and stage 1 through stage 4 chronic kidney disease, or unspecified chronic kidney disease; I50.9 Heart failure, unspecified; N18.9 Chronic kidney disease, unspecified; I25.10 Atherosclerotic heart disease of native coronary artery without angina pectoris; I25.2 Old myocardial infarction; I48.0 Paroxysmal atrial fibrillation; E78.5 Hyperlipidemia, unspecified; E03.9 Hypothyroidism, unspecified; Z79.01 Long term (current) use of anticoagulants; Z95.5 Presence of coronary angioplasty implant and graft
CPT/HCPCS: 96365; G0463; J2916

== ENCOUNTER → 2024-07-09 | Outpatient (CLI) | payer MEDICARE, BC ==
[2024-07-09] MEDS: SODIUM FERRIC GLUC CPLEX 62.5MG/5ML VIAL IV ONE ×2 (09:45→11:43)
[2024-07-09 09:50] VITALS: BP 151/67; PULSE 72; RESP 18; O2SAT 97
[2024-07-09 11:05] VITALS: BP 144/55; PULSE 65; RESP 18; O2SAT 95
== END | disposition home or self-care (01) ==
LOC: CHF HDHVI 09:42
PROVIDERS: ATTEND Internal Medicine Cardiovascular Disease
DX: D64.9 Anemia, unspecified (principal); R53.83 Other fatigue; I13.0 Hypertensive heart and chronic kidney disease with heart failure and stage 1 through stage 4 chronic kidney disease, or unspecified chronic kidney disease; I50.9 Heart failure, unspecified; N18.9 Chronic kidney disease, unspecified; I25.10 Atherosclerotic heart disease of native coronary artery without angina pectoris; I25.2 Old myocardial infarction; I48.0 Paroxysmal atrial fibrillation; J45.909 Unspecified asthma, uncomplicated; E78.5 Hyperlipidemia, unspecified; E03.9 Hypothyroidism, unspecified; Z79.01 Long term (current) use of anticoagulants; Z95.5 Presence of coronary angioplasty implant and graft
CPT/HCPCS: 96365; G0463; J2916

== ENCOUNTER → 2024-07-16 | Outpatient (CLI) | payer MEDICARE, BC ==
[~2024-07-16] VITALS: Ht 165.1 cm; Wt 105.2 kg
[~2024-07-16] MED LIST changes: +IRON SUCROSE 20 mg/ml 10ml VIAL IV ONE; +PATIENTS OWN MEDICATION (FERRLECIT 125 MG) IV ONE
[2024-07-16 09:50] VITALS: BP 118/50; PULSE 83; RESP 20; O2SAT 95
[2024-07-16] MEDS: SODIUM FERRIC GLUC CPLEX 62.5MG/5ML VIAL IV ONE (10:20)
[2024-07-16 11:20] VITALS: BP 119/51; PULSE 73; RESP 16; O2SAT 98
[2024-07-16] MEDS: SODIUM FERR GLUC 62.5MG/5ML 110 ML IV ONE (16:08)
== END | disposition home or self-care (01) ==
LOC: CHF HDHVI 09:58
PROVIDERS: ATTEND Internal Medicine Cardiovascular Disease
DX: D64.9 Anemia, unspecified (principal); R53.83 Other fatigue; R06.02 Shortness of breath; I13.0 Hypertensive heart and chronic kidney disease with heart failure and stage 1 through stage 4 chronic kidney disease, or unspecified chronic kidney disease; I50.9 Heart failure, unspecified; N18.9 Chronic kidney disease, unspecified; I25.10 Atherosclerotic heart disease of native coronary artery without angina pectoris; I25.2 Old myocardial infarction; I48.0 Paroxysmal atrial fibrillation; E78.5 Hyperlipidemia, unspecified; E03.9 Hypothyroidism, unspecified; Z95.5 Presence of coronary angioplasty implant and graft; Z87.891 Personal history of nicotine dependence
CPT/HCPCS: 96365; G0463; J2916; J1756

== ENCOUNTER → 2024-07-18 | Outpatient (CLI) | payer MEDICARE, BC ==
[~2024-07-18] VITALS: Ht 165.1 cm; Wt 105.2 kg
[~2024-07-18] MED LIST changes: -IRON SUCROSE 20 mg/ml 10ml VIAL IV ONE; -PATIENTS OWN MEDICATION (FERRLECIT 125 MG) IV ONE
[2024-07-18 10:18] VITALS: BP 123/33; PULSE 80; RESP 20; O2SAT 97
[2024-07-18] MEDS: SODIUM FERRIC GLUC CPLEX 62.5MG/5ML VIAL IV ONE ×2 (10:47→11:58)
[2024-07-18 11:35] VITALS: BP 157/59; PULSE 74; RESP 18; O2SAT 98
== END | disposition home or self-care (01) ==
LOC: CHF HDHVI 10:18
PROVIDERS: ATTEND Internal Medicine Cardiovascular Disease
DX: D64.9 Anemia, unspecified (principal); R53.83 Other fatigue; R06.02 Shortness of breath; I13.0 Hypertensive heart and chronic kidney disease with heart failure and stage 1 through stage 4 chronic kidney disease, or unspecified chronic kidney disease; I50.9 Heart failure, unspecified; N18.9 Chronic kidney disease, unspecified; I25.10 Atherosclerotic heart disease of native coronary artery without angina pectoris; I25.2 Old myocardial infarction; I48.0 Paroxysmal atrial fibrillation; E78.5 Hyperlipidemia, unspecified; E03.9 Hypothyroidism, unspecified; Z87.891 Personal history of nicotine dependence; Z79.01 Long term (current) use of anticoagulants; Z95.5 Presence of coronary angioplasty implant and graft
CPT/HCPCS: 96365; G0463; J2916

== ENCOUNTER → 2024-07-23 | Outpatient (CLI) | payer MEDICARE, BC ==
[~2024-07-23] VITALS: Ht 30.5 cm; Wt 0.5 kg
[~2024-07-23] MED LIST changes: +SODIUM FERR GLUC 125 MG/in NS 100 ML IVPB KIT IV ONE
[2024-07-23 13:35] VITALS: BP 148/52; PULSE 78; RESP 18; O2SAT 94
[2024-07-23] MEDS: SODIUM FERRIC GLUC CPLEX 62.5MG/5ML VIAL IV ONE ×2 (13:57→15:54)
[2024-07-23 15:12] VITALS: BP 147/58; PULSE 64; RESP 16; O2SAT 94
== END | disposition home or self-care (01) ==
LOC: CHF HDHVI 13:30
PROVIDERS: ATTEND Internal Medicine Cardiovascular Disease
DX: D64.9 Anemia, unspecified (principal); I25.10 Atherosclerotic heart disease of native coronary artery without angina pectoris; I13.0 Hypertensive heart and chronic kidney disease with heart failure and stage 1 through stage 4 chronic kidney disease, or unspecified chronic kidney disease; E11.22 Type 2 diabetes mellitus with diabetic chronic kidney disease; N18.9 Chronic kidney disease, unspecified; I50.9 Heart failure, unspecified; E78.5 Hyperlipidemia, unspecified; E03.9 Hypothyroidism, unspecified; I25.2 Old myocardial infarction; I48.0 Paroxysmal atrial fibrillation; J45.909 Unspecified asthma, uncomplicated; Z90.710 Acquired absence of both cervix and uterus; Z88.8 Allergy status to other drugs, medicaments and biological substances; Z88.0 Allergy status to penicillin; Z86.711 Personal history of pulmonary embolism; Z79.01 Long term (current) use of anticoagulants; Z87.891 Personal history of nicotine dependence; Z95.1 Presence of aortocoronary bypass graft
CPT/HCPCS: 96365; G0463; J2916

== ENCOUNTER → 2024-07-25 | Outpatient (CLI) | payer MEDICARE, BC ==
[~2024-07-25] MED LIST changes: -SODIUM FERR GLUC 125 MG/in NS 100 ML IVPB KIT IV ONE
[2024-07-25 13:47] VITALS: BP 159/71; PULSE 74; RESP 18; O2SAT 99
[2024-07-25] MEDS: SODIUM FERRIC GLUC CPLEX 62.5MG/5ML VIAL IV ONE ×2 (14:03→14:28)
== END | disposition home or self-care (01) ==
LOC: CHF HDHVI 13:40
PROVIDERS: ATTEND Internal Medicine Cardiovascular Disease
DX: D64.9 Anemia, unspecified (principal); R53.83 Other fatigue; I13.0 Hypertensive heart and chronic kidney disease with heart failure and stage 1 through stage 4 chronic kidney disease, or unspecified chronic kidney disease; E11.22 Type 2 diabetes mellitus with diabetic chronic kidney disease; I50.9 Heart failure, unspecified; N18.9 Chronic kidney disease, unspecified; I25.10 Atherosclerotic heart disease of native coronary artery without angina pectoris; I48.0 Paroxysmal atrial fibrillation; I25.2 Old myocardial infarction; J45.909 Unspecified asthma, uncomplicated; E78.5 Hyperlipidemia, unspecified; E03.9 Hypothyroidism, unspecified; Z79.01 Long term (current) use of anticoagulants; Z87.891 Personal history of nicotine dependence; Z95.5 Presence of coronary angioplasty implant and graft
CPT/HCPCS: 96365; G0463; J2916

== ENCOUNTER → 2024-07-30 | Outpatient (CLI) | payer MEDICARE, BC ==
[2024-07-30 13:52] VITALS: BP 147/57; PULSE 75; RESP 18; O2SAT 99
[2024-07-30] MEDS: SODIUM FERRIC GLUC CPLEX 62.5MG/5ML VIAL IV ONE (14:21)
[2024-07-30] MEDS: PATIENTS OWN MEDICATION (FERRLECIT 125 MG) IV ONE (14:30)
[2024-07-30 15:33] VITALS: BP 159/58; PULSE 69; RESP 18; O2SAT 97
== END | disposition home or self-care (01) ==
LOC: CHF HDHVI 13:46
PROVIDERS: ATTEND Internal Medicine Cardiovascular Disease
DX: D64.9 Anemia, unspecified (principal); I12.9 Hypertensive chronic kidney disease with stage 1 through stage 4 chronic kidney disease, or unspecified chronic kidney disease; E11.22 Type 2 diabetes mellitus with diabetic chronic kidney disease; N18.9 Chronic kidney disease, unspecified; I25.10 Atherosclerotic heart disease of native coronary artery without angina pectoris; E78.5 Hyperlipidemia, unspecified; E03.9 Hypothyroidism, unspecified; I25.2 Old myocardial infarction; I48.0 Paroxysmal atrial fibrillation; J45.909 Unspecified asthma, uncomplicated; Z79.01 Long term (current) use of anticoagulants; Z87.891 Personal history of nicotine dependence; Z95.1 Presence of aortocoronary bypass graft; Z90.710 Acquired absence of both cervix and uterus; Z88.0 Allergy status to penicillin; Z88.8 Allergy status to other drugs, medicaments and biological substances; Z86.711 Personal history of pulmonary embolism
CPT/HCPCS: 96365; G0463; J2916

== ENCOUNTER → 2024-08-01 | Outpatient (CLI) | payer MEDICARE, BC ==
[~2024-08-01] MED LIST changes: +PATIENTS OWN MEDICATION (FERRLECIT 125 MG) IV ONE
[2024-08-01 13:56] VITALS: BP 148/61; PULSE 81; RESP 20; O2SAT 95
[2024-08-01] MEDS: SODIUM FERRIC GLUC CPLEX 62.5MG/5ML VIAL IV ONE (14:02)
[2024-08-01 15:10] VITALS: BP 157/67; PULSE 75; RESP 20; O2SAT 96
[2024-08-01] MEDS: SODIUM FERR GLUC 62.5MG/5ML 110 ML IV ONE (15:15)
--- NOTE | 2024-08-09 11:09 | DVHSR ---
APPROVED REPORT EXAM: Two-dimensional and M-mode echocardiogram with Doppler and color Doppler. RISK FACTORS Obesity: DIMENSIONS LVDd (3.8-5.7cm)LA (2D)4.7 (1.9-4.0cm)Aortic Root3.0 (2.0-3.7cm) LVDs (2.5-4.0cm)LA (MM) (1.9-4.0cm)Aortic Cusp Exc1.0 (1.5-2.0cm) EF (%) 57.0 (55-70%)Rt. Atrium4.1 (1.9-4.0cm)Asc. Aorta cm Mitral Valve MitralMitral Stenosis E wave1.50m/sMV Mean GR.6mmHg A wave1.67m/sMV Peak GR.13mmHg E/A ratio0.92D MVAcm2 DECEL [id number] 1/2 Civx18jm IVRTmsDop MVA3.01cm2 Aortic Valve Aortic ValveAortic Stenosis V11.36m/Harriet Mean GR.19mmHg V22.86m/Harriet Peak GR.32mmHg LVOT Diameter1.9 (1.8-2.4cm)Doppler AVA1.35cm2 Pulmonic Valve V21.14m/s LEFT VENTRICLE The left ventricle is normal size. The left ventricle is normal in structure and function. The Ejection Fraction is within normal limits. RIGHT VENTRICLE The right ventricle is normal size. ATRIA The left atrium is enlarged. The right atrium is enlarged. The interatrial septum is intact with no evidence for an atrial septal defect. MITRAL VALVE The mitral valve is normal in structure. Mitral annular calcification is moderate. Calcified mitral apparatus causing mitral stenosis. There is mild to moderate mitral valve stenosis. Maximum pressure gradient of 13 mmHg and mean pressure gradient of 6 mmHg. There is no mitral valve regurgitation noted. PULMONIC VALVE The pulmonic valve is not well visualized. TRICUSPID VALVE The tricuspid valve is grossly normal. AORTIC VALVE The aortic valve is moderately calcified. No aortic regurgitation is present. There is mild to moderate valvular aortic stenosis. Calculated aortic valve area is 1.35 cm2 with maximum pressure gradient of 32 mmHg and mean pressure gradient of 19 mmHg. GREAT VESSELS The aortic root is normal size. PERICARDIAL EFFUSION There is no pericardial effusion. Other Information Quality : LimitedRhythm : Technically limited study due to body habitus, patient lying flat. Conclusion AV CALCIFICATION WITH MOD MOD AI MOD MAC MILD MS EF >60% LAE
== END | disposition home or self-care (01) ==
LOC: CHF HDHVI 13:53
PROVIDERS: ATTEND Internal Medicine Cardiovascular Disease
DX: D64.9 Anemia, unspecified (principal); I25.10 Atherosclerotic heart disease of native coronary artery without angina pectoris; E78.5 Hyperlipidemia, unspecified; I08.0 Rheumatic disorders of both mitral and aortic valves; I25.2 Old myocardial infarction; I48.0 Paroxysmal atrial fibrillation; E03.9 Hypothyroidism, unspecified; J45.909 Unspecified asthma, uncomplicated; I13.0 Hypertensive heart and chronic kidney disease with heart failure and stage 1 through stage 4 chronic kidney disease, or unspecified chronic kidney disease; E11.22 Type 2 diabetes mellitus with diabetic chronic kidney disease; N18.9 Chronic kidney disease, unspecified; I50.9 Heart failure, unspecified; Z90.710 Acquired absence of both cervix and uterus; Z88.0 Allergy status to penicillin; Z88.8 Allergy status to other drugs, medicaments and biological substances; Z79.01 Long term (current) use of anticoagulants; Z87.891 Personal history of nicotine dependence; Z86.711 Personal history of pulmonary embolism; Z95.1 Presence of aortocoronary bypass graft; Z98.51 Tubal ligation status
CPT/HCPCS: 93306; 96365; G0463; J2916

== ENCOUNTER → 2024-09-27 | Day surgery (SDC) | payer MEDICARE, BC ==
[2024-09-21 12:05] LABS: Basophils # (auto) 0 10 ^3/uL (0-0.2); Basophils % (auto) 0.5 % (0.0-2.0); Eosinophils # (auto) 0.1 10 ^3/uL (0-0.8); Eosinophils % (auto) 2.8 % (0.0-7.0); Hemoglobin 11.1 g/dL (12.2-16.2); Lymphocytes # (auto) 1.7 10 ^3/uL (0.4-5.4); Lymphocytes % (auto) 31.8 % (10.0-50.0); Mean Corpuscular Hgb Conc. 32.7 g/dL (32.0-36.0); Monocytes # (auto) 0.5 10 ^3/uL (0-1.3); Monocytes % (auto) 10.2 % (0.0-12.0); Neutrophils # (auto) 2.9 10 ^3/uL (1.6-8.6); Neutrophils % (auto) 54.7 % (37.0-80.0); Platelet Count (auto) 212 10^3/uL (140-450); Red Blood Cells 3.58 10^6/uL (4.0-5.20); White Blood Cell 5.2 10^3/uL (4.4-10.8)
[2024-09-21 12:25] LABS: INR 1.05 (0.9-1.15); Partial Thromboplastin Time 26.9 SEC (24.5-34.5); Prothrombin Time 11.1 sec (9.3-11.8)
[2024-09-21 12:28] LABS: Alanine Aminotransferase 18 U/L (7-40); Albumin 4.4 g/dL (3.2-4.8); Anion Gap 7 (5-15); Aspartate Aminotransferase 18 U/L (13-40); BUN/Creatinine Ratio 32.5 (10.0-20.0); Calcium 10.2 mg/dL (8.7-10.4); Carbon Dioxide 25 mmol/L (20-31); Glucose 96 mg/dL (74-106); Potassium 4.7 mmol/L (3.5-5.1); Sodium 141 mmol/L (136-145)
[2024-09-21 12:35] LABS: Alkaline Phosphatase 132 U/L (46-116); Bilirubin, Total 0.2 mg/dL (0.2-1.0); Blood Urea Nitrogen 38 mg/dL (9-23); Chloride 109 mmol/L (98-107)
[2024-09-21 13:10] LABS: Urine Bacteria FEW /hpf (None Seen); Urine Blood Negative /uL (Negative); Urine Clarity Clear (Clear); Urine Color Light-Yellow (Yellow); Urine Protein, UAD Negative (Negative); Urine Squamous Epithelial Cell FEW /hpf (<5); Urine Urobilinogen Normal (Negative); Urine WBC < 1 /HPF (0-5)
[~2024-09-27] VITALS: Ht 162.6 cm; Wt 104.3 kg
[~2024-09-27] MED LIST changes: +DexAMETHasone SOD PHOS 10MG/1ML VIAL INJ ONE; +GLYCOPYRROLATE 0.2 MG/ML 1ML VIAL ONE; +HYDROmorphone HCL 2 MG/ML VL/or syr IV ONE; +HYDROmorphone HCL 2 MG/ML VL/or syr IV PRN; +KETAMINE 50mg/ML 1ml syringe ONE; +LIDOCAINE 2% (LOCAL ANESTH.) PF 5ml SDV ONE; +MIDAZOLAM HCL 2MG/2ML 2ml VIAL (1mg/ml) ONE; +ONDANSETRON HCL 4 MG/2 ML VIAL ONE; -PATIENTS OWN MEDICATION (FERRLECIT 125 MG) IV ONE; -PROM12.57 PO; +PROPOFOL 10 MG/ML 20 ML IV ONE; +ePHEDrine SULFATE 50 MG/ML AMP ONE; +fentaNYL CITRATE 100 MCG/2 ML VL ONE
--- NOTE | 2024-09-27 09:01 | DVHHP2 ---
GI H&P Pre-Op Assessment Date: 09/27/24 Chief complaint: anemia HPI: per clinic note Past medical history: per clinic note Past surgical history: per clinic note Family history: per clinic note Physical exam: General: NAD, AAOX3 HEENT: PERRL, no scleral icterus, normal hearing, gums without lesions or bleeding, oropharynx clear without erythema or exudate. Neck: Supple without enlargement of the thyroid, or lymphadenopathy. Chest: Normal size and shape, no tenderness, lung best clear to auscultation and percussion, nonlabored breathing. Heart: RRR, no murmur Abdomen: non-distended, no tenderness to palpation, +BS, no hepatosplenomegaly Extremities: no edema Neurological: CN II-XII intact, sensation intact in all extremities, 5+ strength in all extremities Skin: No rashes, No jaundice Assessment: - anemia Plan: - EGD - Colonoscopy - Risks (bleeding, infection, perforation, reaction to sedation medications and cardiopulmonary arrest) and benefit of the procedure were explained to patient. Patient agrees to undergo the procedure. JANNETH CHAVARRIA MD Sep 27, 2024 09:01
[2024-09-27 09:45] VITALS: PULSE 100; RESP 12; TEMP 98.4; O2SAT 100
--- NOTE | 2024-09-27 09:46 | DVHOP2 ---
Operative Report DATE OF OPERATION: 09/27/24 PROCEDURE: Upper Endoscopy. PREOPERATIVE INDICATION: The patient is a 79 -year-old female undergoing endoscopy for anemia. POSTOPERATIVE DIAGNOSES: 1. Mild gastritis PROCEDURE PERFORMED BY: Andrea Perez SCOPE: Olympus videoendoscope. ASA CLASS: 3 PREOPERATIVE MEDICATIONS: MAC with Dr Valentin PROCEDURE IN DETAIL: After obtaining an informed consent, the patient was placed on left lateral decubitus position. The patient was then sedated with the above medications. A bite block was placed between her teeth. The endoscope was then passed through the oropharynx, into the esophagus, and through the stomach and pylorus up to the second and third part of the duodenum. The duodenum was normal in appearance. There was mild gastritis. Gastric biopsies were obtained. The GEJ was normal in appearance at 38 cm. The esophagus was normal in appearance. The endoscope was then withdrawn. The patient tolerated the procedure well without difficulty. COMPLICATIONS : None SPECIMENS: Gastric biopsies DISPOSITION: D/C to home PLAN: 1. Await for biopsy result ANDREA PEREZ MD Sep 27, 2024 09:46
--- NOTE | 2024-09-27 09:47 | DVHOP2 ---
Operative Report DATE OF OPERATION: 09/27/24 PROCEDURE: Colonoscopy. PREOPERATIVE INDICATION: The patient is a 79 -year-old female undergoing colonoscopy for anemia. POSTOPERATIVE DIAGNOSES: 1. 2 mm sigmoid polyp removed with biopsy forceps. PROCEDURE PERFORMED BY: Andrea Perez M.D. SCOPE: Olympus videocolonoscope. ASA CLASS: 3 PREOPERATIVE MEDICATIONS: MAC with Dr Valentin PROCEDURE IN DETAIL: After obtaining an informed consent, the patient was placed on left lateral decubitus position. She was then sedated with the above medications. A rectal examination was performed that was normal. The colonoscope was then passed through the anus into the rectosigmoid and through the descending, transverse, and ascending colon up to the cecum with visualization of the appendiceal orifice, base of the cecum and the ileocecal valve. A 2 mm sigmoid polyp removed with biopsy forceps. The colonoscope was then withdrawn. The patient tolerated the procedure well without difficulty. WITHDRAWAL TIME: 6 minutes QUALITY OF THE PREP: [place] Bowel Prep score: 7 COMPLICATIONS : None SPECIMENS: Colon polyp DISPOSITION: D/C to home PLAN: 1. Repeat colonoscopy base on biopsy result ANDREA PEREZ MD Sep 27, 2024 09:47
--- NOTE | 2024-09-27 09:48 | DVHDS2 ---
Physician Discharge Progress N Final Diagnosis: mild gastritis colon polyp Operations or Procedures: Operations or Procedures EGD with biopsy colonoscopy with biopsy polypectomy Condition on Discharge: Good Disposition: Home Discharge Instructions: Diet: Regular Activity: No Restrictions, As Tolerated Medications: resume with previous home medications Follow Up Care: Discharge Statement: "Patient was advised to return to the ER or call 911 if any headaches, dizziness, shortness of breath, chest pain, abdominal pain, bleeding, fevers, or worsening of medical condition. Patient was counseled about treatment plan, medications, possible side effects, patientverbalized understanding. All questions were answered to the best of my ability. This discharge took greater then 30 minutes in planning, reviewing documentation, counseling the patient, and discussing with other team members." JANNETH CHAVARRIA MD Sep 27, 2024 09:48
[2024-09-27] MEDS: ONDANSETRON HCL 4 MG/2 ML VIAL IV ONE (11:55)
[2024-09-27 12:30] VITALS: BP 146/57; PULSE 75; RESP 12; O2SAT 92
[2024-09-27] MEDS: ePHEDrine SULFATE 50 MG/ML AMP IM ONE (12:54)
== END | disposition home or self-care (01) ==
LOC: GI 07:45
PROVIDERS: ATTEND Internal Medicine Gastroenterology
DX: D64.9 Anemia, unspecified (principal); K29.50 Unspecified chronic gastritis without bleeding; D12.5 Benign neoplasm of sigmoid colon; I10 Essential (primary) hypertension; G89.29 Other chronic pain; I48.91 Unspecified atrial fibrillation; E03.9 Hypothyroidism, unspecified; I25.2 Old myocardial infarction; J45.909 Unspecified asthma, uncomplicated; Z87.891 Personal history of nicotine dependence; Z98.890 Other specified postprocedural states; Z79.899 Other long term (current) drug therapy; Z86.718 Personal history of other venous thrombosis and embolism; Z86.711 Personal history of pulmonary embolism; G47.33 Obstructive sleep apnea (adult) (pediatric); Z88.0 Allergy status to penicillin; Z91.041 Radiographic dye allergy status; Z88.8 Allergy status to other drugs, medicaments and biological substances
CPT/HCPCS: 36415; 43239; 45380; 80053; 81001; 85025; 85610; 85730; 88305; 88312; 88342; J1100; J1171; J2003; J2250; J2405; J2704; J3010; J7030

== ENCOUNTER 2025-01-29 19:37 | Inpatient (IN) | payer MEDICARE, OTHER ==
[~2025-01-29] VITALS: Ht 162.6 cm; Wt 104.5 kg
[~2025-01-29 19:37] MED LIST changes: -DexAMETHasone SOD PHOS 10MG/1ML VIAL INJ ONE; -GLYCOPYRROLATE 0.2 MG/ML 1ML VIAL ONE; -HYDROmorphone HCL 2 MG/ML VL/or syr IV ONE; -HYDROmorphone HCL 2 MG/ML VL/or syr IV PRN; -KETAMINE 50mg/ML 1ml syringe ONE; -LIDOCAINE 2% (LOCAL ANESTH.) PF 5ml SDV ONE; -MIDAZOLAM HCL 2MG/2ML 2ml VIAL (1mg/ml) ONE; -ONDANSETRON HCL 4 MG/2 ML VIAL ONE; -PROPOFOL 10 MG/ML 20 ML IV ONE; -ePHEDrine SULFATE 50 MG/ML AMP ONE; -fentaNYL CITRATE 100 MCG/2 ML VL ONE
[2025-01-29] MEDS: METOPROLOL TARTRATE 1MG/1ML-5ML VIAL IV SCH (19:55)
--- NOTE | 2025-01-29 20:00 | ED.PDOC ---
HPI Comments 79 year old Female with a Hx of HTN, Aortic valve Disease, SD, and LAD presents to the ED for the c/c of Chest pain. Pt states that her CP started approx 20 minutes upon arrival to the ED, and notes that [place] the [place]" when her CP began. Pt notes that her pain radiated to her Right shoulder and down both of her arms. No other associated symptoms, modifiers, recent injuries or sick contacts present at this time. Chief Complaint: Chest Pain Time Seen by MD: 19:53 Primary Care Provider: BROOKE Reviewed Notes: Nurses Notes, Medications, Allergies Allergies: Coded Allergies: Benzyl Alcohol (Verified Allergy, Severe, SEIZURES, 03/05/24) Prochlorperazine (Verified Allergy, Severe, SEIZURES, 03/05/24) Saccharin (Verified Allergy, Severe, SEIZURES, 03/05/24) Iodine (Verified Allergy, Intermediate, HIVES, 03/05/24) Penicillins (Verified Allergy, Intermediate, HIVES, 03/05/24) Linezolid (Verified Allergy, Mild, Rash face/neck, 09/21/24) Corticosteroids (Verified Adverse Reaction, Mild, 03/05/24) Opioid Analgesics (Verified Adverse Reaction, Mild, 03/05/24) Uncoded Allergies: LACTOSE INTOLERANCE (Allergy, Mild, 06/12/10) oral antibiotics (Adverse Reaction, Mild, GI upset , 09/21/24) Home Meds Reported Medications Patients Own Medication (PATIENTS OWN MEDICATION) ., for Clonidine Intrathecal infusion PTS OWN MED-OBTAIN FROM PT AND SEND TO RX DRUG: FREQ: RX# EXP: DATE DISP: TECH: RP: 09/21/24 Patients Own Medication (PATIENTS OWN MEDICATION) ., MCG for DILAUDID INTRATHECAL PUMP PTS OWN MED-OBTAIN FROM PT AND SEND TO RX DRUG: FREQ: RX# EXP: DATE DISP: TECH: RPH: 03/05/24 Levothyroxine Sodium (Synthroid) 150 Mcg Tab, 1 TAB PO DAILY, #30 TAB 5 Refills 03/05/24 Furosemide (Furosemide) 20 Mg Tab, 20 MG PO DAILYP PRN for EDEMA, MG 03/05/24 Apixaban Base (ELIQUIS) 2.5 Mg Tab, 2.5 MG PO BID for STOP ON 03/07/24, TAB 09/15/22 Allopurinol (Allopurinol) 300 Mg Tab, 300 MG PO DAILY for GOUT, MG 09/15/22 Levalbuterol Tartrate (Xopenex Hfa) 45 Mcg/Act Aer, 45 MCG IN Q4HPRN PRN for SHORTNESS OF BREATH, AER 09/29/20 Promethazine Hcl (Promethazine Hcl) 25 Mg Tab, 25 MG PO TIDP PRN for NAUSEA / VOMITING, TAB 09/29/20 Lorazepam (Ativan) 0.5 Mg Tab, 0.5 MG PO BIDP PRN for ANXIETY, TAB 09/29/20 Lisinopril (Lisinopril) 20 Mg Tab, 10 MG PO DAILY for HTN for 30 Days, MG 09/29/20 Acetaminophen (Tylenol Extra Strength) 500 Mg Tab, 1000 MG PO Q6HP PRN for PAIN SCALE 1 THRU 6, TAB 09/29/20 Information Source: Patient Mode of Arrival: Ambulatory Severity: Moderate Timing: Minutes Duration: Since onset, Minutes Prehospital treatment: None Location: Chest (L) Radiation: Shoulder (R), Arm (R), Arm (L) Quality: Sharp, Squeezing, Pressure Onset: At Rest Cardiac Risk Factors: HTN PE Risk Factors: None History of: SD, Aortic Disease, Valve Disease Modifying Factors: Exertion, Breathing, Movement Associated Signs and Symptoms: SOB, Palpitations Vital Signs Vital Signs Date Time Temp Pulse Resp B/P (MAP) Pulse Ox O2 Delivery O2 Flow Rate FiO2 01/29/25 20:50 74 162/65 01/29/25 20:31 27 98 Room Air* 0 21 01/29/25 19:55 98.2 98.2 Physical Exam General: Awake, alert and oriented. Moderate acute distress. Skin: Skin in warm, dry and intact. Appropriate color for ethnicity. HEENT: The head is normocephalic and atraumatic. Conjunctivae are clear without exudates or hemorrhage. Sclera is non-icteric. EOM are intact. No signs of nystagmus. Eyelids are normal in appearance without swelling or lesions. Oral mucosa is pink and moist Neck: The neck is supple with normal range of motion. No JVD. Cardiac: Heart rate and rhythm are rapid. No murmurs, gallops, or rubs are auscultated. Respiratory: No signs of respiratory distress. Lung sounds are clear in all lobes bilaterally without rales, rhonchi, or wheezes. Abdominal: Abdomen is soft, non-tender without distention, guarding or rigidity. Bowel sounds are present and normoactive in all four quadrants. Extremities: Upper and lower extremities are atraumatic in appearance without deformity or edema. Neurological: The patient is awake, alert and oriented to person, place, and time with normal speech. Speech is clear. There is no facial asymmetry. Psychiatric: Appropriate mood and affect. Good judgement and insight. Review of Systems: REVIEW OF SYSTEMS: No fever, no chills, or fatigue HEENT: No sore throat, no earache, no congestion, no neck pain. Cardiac: + chest pain. No palpitations. Lungs: + shortness of breath, no cough. GI: No nausea, no vomiting, no diarrhea, no constipation, no abdominal pain : No dysuria, frequency, or urgency. No hematuria. Musculoskeletal: No joint pain , no joint swelling, no extremity edema. Skin: No rash, no itching. Neuro: No headache, no dizziness, no weakness Past Medical History PAST MEDICAL HISTORY: CAD, CHF, CKF, High Lipids, HTN, SD, PAD, Thyroid Surgical History: Hysterectomy, PTCA, Tubal Ligation [employer]ILDING [employer]PER[employer] History: No Pertinent [employer]ILDING [employer]CTION SUPER[employer]OR History Family History Family History: No family hx of Heart erik Social History Smoker: Non-Smoker Alcohol: Denies ETOH Use Drugs: Denies Drug Use Lives In: Home EKG EKG : Pulse Rate (adult): 158 [place]: Normal Cardiac Rhythm: ST Block: None Hypertrophy: None ST: Normal Was a procedure done? Was a procedure done?: No CP Differential Dx Differential Diagnosis: Angina, Electrolyte Disorder, SD, Sinus Tachycardia, Ventricular Dysrhythmia Differential Diagnosis: CHF, HTN Accelerated Differential Diagnosis: Angina, Aortic dissection, Chest Wall Pain, Gastritis, Myocardial Infarction, Pericarditis X-Ray, Labs, Meds, VS Vital Signs Date Time Temp Pulse Resp B/P (MAP) Pulse Ox O2 Delivery O2 Flow Rate FiO2 01/29/25 20:50 74 162/65 01/29/25 20:43 75 01/29/25 20:31 152 27 98 Room Air* 0 21 01/29/25 20:15 127 155/82 01/29/25 20:05 134 179/110 01/29/25 20:00 158 01/29/25 19:55 152 186/92 01/29/25 19:55 98.2 152 98 186/92 (123) 98 98.2 01/29/25 19:49 98.2 159 18 175/109 (131) 99 98.2 01/29/25 19:40 158 Lab Test 01/29/25 20:57 01/29/25 20:03 Range/Units Troponin I High Sensitivity Pending 36 *H </=34 ng/L White Blood Count 7.7 4.4-10.8 10^3/uL Red Blood Count 3.76 L 4.0-5.20 10^6/uL Hemoglobin 11.8 L 12.2-16.2 g/dL Hematocrit 34.8 L 36.0-46.0 % Mean Corpuscular Volume 92.5 80.0-100.0 fL Mean Corpuscular Hemoglobin 31.3 28.0-32.0 pg Mean Corpuscular Hemoglobin Concent 33.8 32.0-36.0 g/dL Red Cell Distribution Width 16.4 H 11.8-14.3 % Platelet Count 197 140-450 10^3/uL Mean Platelet Volume 8.1 6.9-10.8 fL Neutrophils (%) (Auto) 60.7 37.0-80.0 % Lymphocytes (%) (Auto) 27.2 10.0-50.0 % Monocytes (%) (Auto) 8.6 0.0-12.0 % Eosinophils (%) (Auto) 2.3 0.0-7.0 % Basophils (%) (Auto) 1.2 0.0-2.0 % Neutrophils # (Auto) 4.7 1.6-8.6 10 ^3/uL Lymphocytes # (Auto) 2.1 0.4-5.4 10 ^3/uL Monocytes # (Auto) 0.7 0-1.3 10 ^3/uL Eosinophils # (Auto) 0.2 0-0.8 10 ^3/uL Basophils # (Auto) 0.1 0-0.2 10 ^3/uL Nucleated Red Blood Cells 0.0 % Sodium Level 145 136-145 mmol/L Potassium Level 4.0 3.5-5.1 mmol/L Chloride Level 112 H 98-107 mmol/L Carbon Dioxide Level 17 L 20-31 mmol/L Anion Gap 16 H 5-15 Blood Urea Nitrogen 36 H 9-23 mg/dL Creatinine 1.24 H 0.550-1.02 mg/dL Glomerular Filtration Rate Calc 45 >90 mL/min BUN/Creatinine Ratio 29.0 H 10.0-20.0 Serum Glucose 133 H 74-106 mg/dL Lactic Acid Level 2.5 *H 0.4-2.0 mmol/L Calcium Level 10.7 H 8.7-10.4 mg/dL Magnesium Level 2.1 1.6-2.6 mg/dL B-Type Natriuretic Peptide 105.62 0-100 pg/mL Thyroid Stimulating Hormone (TSH) 0.02 L 0.55-4.78 uIU/mL Current Medications Medications (Trade) Dose Ordered Sig/Monique Route Start Time Stop Time Status Last Admin Sodium Chloride 1,000 ml @ 1,000 mls/hr Q1H ONCE IV 01/29/25 20:00 01/29/25 20:59 DC 01/29/25 20:24 Metoprolol Tartrate (Lopressor) 5 mg Q5MIN IV 01/29/25 20:00 01/29/25 20:15 Sodium Chloride 1,000 ml @ 250 mls/hr Q4H ONCE IV 01/29/25 20:45 01/30/25 00:44 01/29/25 20:52 Time of 1ST Reevaluation: 20:24 Reevaluation 1ST: Unchanged Patient Education/Counseling: Need For Follow Up Family Education/Counseling: No Family Present Sepsis Sepsis Reasesment Focused Exam Orders: Laboratory Tests 01/29/25 20:03: Lactic Acid Level 2.5 Departure 1 Departure Time of Disposition: 21:17 Impression: Primary Impression: Chest pain Additional Impressions: SVT (supraventricular tachycardia) Elevated troponin Disposition: ADMITTED INPATIENT Condition: Stable Comments 79-year-old female who presented to the emergency department with chest pain and SVT with a rate of 150s. Patient was converted to sinus rhythm at a rate of 70s after metoprolol 5 mg x 3. Patient's troponin is mildly elevated likely secondary to the SVT. We will trend troponins. Patient admitted to hospitalist service for further treatment, evaluation and monitoring. Extensive evaluation was performed in attempt to identify or rule out: (See differential diagnosis section) The following tests were ordered, and results were reviewed by me and discussed with patient: (See diagnostic results section) The following test were independently interpreted by me: EKG I reviewed and agreed with the following test results read by other providers: Chest x-ray I reviewed the following notes from the pt's past medical encounters: N/A Additional information was gathered from interviewing the following independent historians: N/A Discussion of management or test interpretation with external physician/other qualified health animal care taker: N/A Addressed an acute or chronic illness that poses a threat to life or bodily function: Supraventricular tachycardia, angina, hypertension uncontrolled Decision regarding hospitalization or escalation of hospital level of care: Risk and benefits of admission for further treatment of patient's condition was considered. Due to patient's current clinical condition, high risk of decline and poor outcome if discharged and need for further inpatient management and monitoring, patient will be admitted to the hospital. Drug therapy requiring intensive monitoring for toxicity: IV metoprolol Parenteral controlled substances: N/A Decision regarding elective major surgery with identified patient or procedure risk factors: N/A Decision regarding emergency major surgery: N/A Decision not to resuscitate or to de-escalate care because of poor prognosis: N /A Diagnosis or treatment significantly limited by social determinants of health: N/A Critical Care Note Critical Care Time?: Yes (35 min-critical care time only) Stability Stability form required: No Heart Score Heart Score: Heart Score Response (Comments) Value History Highly Suspicious 2 EKG N/A 0 Age >65 2 Risk Factors >3 or Hx ASHD 2 Troponin N/A 0 Total 6 I personally scribed for VIVIAN HERNANDEZ MD ([email or web address]) on 01/29/25 at 20:00. Electronically submitted by Steve Mo ([email or web address]). VIVIAN HERNANDEZ MD Jan 29, 2025 20:00
[2025-01-29 20:14] LABS: Basophils # (auto) 0.1 10 ^3/uL (0-0.2); Basophils % (auto) 1.2 % (0.0-2.0); Eosinophils # (auto) 0.2 10 ^3/uL (0-0.8); Eosinophils % (auto) 2.3 % (0.0-7.0); Hematocrit 34.8 % (36.0-46.0); Hemoglobin 11.8 g/dL (12.2-16.2); Lymphocytes # (auto) 2.1 10 ^3/uL (0.4-5.4); Lymphocytes % (auto) 27.2 % (10.0-50.0); Mean Corpuscular Hemoglobin 31.3 pg (28.0-32.0); Mean Corpuscular Hgb Conc. 33.8 g/dL (32.0-36.0); Mean Corpuscular Volume 92.5 fL (80.0-100.0); Monocytes # (auto) 0.7 10 ^3/uL (0-1.3); Monocytes % (auto) 8.6 % (0.0-12.0); Neutrophils # (auto) 4.7 10 ^3/uL (1.6-8.6); Neutrophils % (auto) 60.7 % (37.0-80.0); Platelet Count (auto) 197 10^3/uL (140-450); Red Blood Cells 3.76 10^6/uL (4.0-5.20); Red Cell Distribution Width 16.4 % (11.8-14.3); White Blood Cell 7.7 10^3/uL (4.4-10.8)
[2025-01-29] MEDS ORDERED: METOPROLOL TARTRATE 1MG/1ML-5ML VIAL IV SCH (20:15)
[2025-01-29] MEDS: METOPROLOL TARTRATE 1MG/1ML-5ML VIAL IV ONE (20:21)
[2025-01-29 20:23] LABS: Sodium 145 mmol/L (136-145)
[2025-01-29 20:24] LABS: Anion Gap 16 (5-15)
[2025-01-29] MEDS: SODIUM CHLORIDE 0.9% 1,000 ML IV ONE ×2 (20:24→20:52)
[2025-01-29 20:29] LABS: Magnesium 2.1 mg/dL (1.6-2.6)
[2025-01-29 20:30] LABS: Blood Urea Nitrogen 36 mg/dL (9-23); Calcium 10.7 mg/dL (8.7-10.4); Carbon Dioxide 17 mmol/L (20-31); Chloride 112 mmol/L (98-107); Glucose 133 mg/dL (74-106)
[2025-01-29 20:31] VITALS: PULSE 152; RESP 27; O2SAT 98
[2025-01-29 20:32] LABS: Lactic Acid w/Reflex 2.5 mmol/L (0.4-2.0)
[2025-01-29 21:49] LABS: Urine Bacteria FEW /hpf (None Seen); Urine Blood Negative /uL (Negative); Urine Clarity Clear (Clear); Urine Color Colorless (Yellow); Urine Hyaline Cast FEW /lpf (0 - 2); Urine Protein, UAD Negative (Negative); Urine Specific Gravity 1.009 (1.001-1.035); Urine Squamous Epithelial Cell None Seen /hpf (<5); Urine Urobilinogen Normal (Negative); Urine WBC 1 /HPF (0-5); Urine pH 5.5 (5.0-9.0)
--- NOTE | 2025-01-29 21:57 | DVH ---
CHEST RADIOGRAPH Indication: cp Technique: Single frontal view of the chest was obtained Comparison: XY CHEST PORTABLE on DOS: 03/28/24, CHEST PORTABLE on DOS: 08/18/22, CXRP on DOS: 08/18/22 FINDINGS: Lines and Tubes: AED pads over the chest. Anterior fusion lower cervical spine. Lungs: No focal consolidation. Pleura: No effusion. No pneumothorax. Cardiomediastinal contours: Unremarkable Bones: No acute osseous abnormality. IMPRESSION: 1. No acute cardiopulmonary disease.
[2025-01-29] MEDS ORDERED: MORPHINE SULFATE INJ 2 MG/ml SYRG IV PRN (22:30)
[2025-01-29] MEDS ORDERED: NITROGLYCERIN 0.4 MG SL TAB SL PRN (22:30)
[2025-01-29] MEDS ORDERED: HYDROcodone-ACET 5/325MG TAB PO PRN (22:30)
[2025-01-29] MEDS: APIXABAN 2.5 MG TAB PO ONE (23:37)
[2025-01-29] MEDS: ASPirin 325 MG TAB PO ONE (23:37)
[2025-01-29] MEDS: SODIUM BICARBONATE 650 MG TAB PO ONE (23:37)
[2025-01-29] MEDS: ACETAMINOPHEN 325 MG TAB PO PRN (23:47)
[2025-01-29 23:51] LABS: Alanine Aminotransferase 13 U/L (7-40); Albumin 3.9 g/dL (3.2-4.8); Anion Gap 11 (5-15); Aspartate Aminotransferase 17 U/L (13-40); Calcium 9.7 mg/dL (8.7-10.4); Glucose 84 mg/dL (74-106); Potassium 4.2 mmol/L (3.5-5.1); Total Protein 6.4 g/dL (5.7-8.2)
[2025-01-30] VITALS (8 sets, daily range): BP systolic 125–159; BP diastolic 54–62; PULSE 64–72; RESP 15–18; TEMP 97.5–98.1; O2SAT 95–99
[2025-01-30 01:31] LABS: Free T4 (Free Thyroxine) 1.7 ng/dL (0.89-1.76); T3 Total 1.04 ng/mL (0.60-1.81)
--- NOTE | 2025-01-30 01:40 | ECG ---
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
[2025-01-30 01:55] LABS: Alkaline Phosphatase 117 U/L (46-116); Bilirubin, Total 0.3 mg/dL (0.2-1.0); Blood Urea Nitrogen 33 mg/dL (9-23); Carbon Dioxide 20 mmol/L (20-31); Chloride 116 mmol/L (98-107); Sodium 147 mmol/L (136-145)
[2025-01-30 02:21] LABS: COVID19 ANTIGEN SOFIA FIA NEGATIVE (NEGATIVE); Rapid Influenza A Negative (Negative); Rapid Influenza B Negative (Negative)
--- NOTE | 2025-01-30 04:28 | DVHHPRES ---
History of Present Illness Resident Creating Document: REJI ARRIAZA RESIDENT History of Present Illness Patient is a 79-year-old female with a past medical history of hypertension, coronary artery disease, [place] s/p PCI to lad, aortic valve stenosis, psoriatic arthritis, gout, pulmonary embolism presented to the ED with a chief complaint of palpitations and chest pain. Patient reported while she was driving on the highway from [facility] back to [place] he started to have palpitations and nondistended heart rate to be very fast and had associated chest pain retrosternal and in the back across the shoulder brace radiating down to both her arms, no sweating, no nausea or vomiting, no abdominal pain following which he called the emergency medical services but she continued to drive and came to the hospital. On arrival to the hospital 12 lead ECG was done which showed SVT and patient was given IV metoprolol following which she converted to the sinus rhythm. Patient is following up with the doctor Noe who is her aboriginal community council member and primary care provider. Past medical history: As per HPI Past surgical history: PCI with 1 DELORIS to LAD, hysterectomy, tubal ligation Social history: Patient denies smoking, alcohol, drug use Home medications: Eliquis 2.5 b.i.d., levothyroxine 150 mcg, lisinopril 10 mg, allopurinol 300 mg, sodium bicarb 650 daily, leflunomide Review of Systems Review of Systems Patient seen and examined at the bedside Denies any chest pain, palpitations, shortness of breath at the time of examination No cough, phlegm, fever or chills Allergies: Coded Allergies: Benzyl Alcohol (Verified Allergy, Severe, SEIZURES, 03/05/24) Prochlorperazine (Verified Allergy, Severe, SEIZURES, 03/05/24) Saccharin (Verified Allergy, Severe, SEIZURES, 03/05/24) Iodine (Verified Allergy, Intermediate, HIVES, 03/05/24) Penicillins (Verified Allergy, Intermediate, HIVES, 03/05/24) Linezolid (Verified Allergy, Mild, Rash face/neck, 09/21/24) Corticosteroids (Verified Adverse Reaction, Mild, 03/05/24) Opioid Analgesics (Verified Adverse Reaction, Mild, 03/05/24) Uncoded Allergies: LACTOSE INTOLERANCE (Allergy, Mild, 06/12/10) oral antibiotics (Adverse Reaction, Mild, GI upset , 09/21/24) Medications Current Medications Medications Dose Ordered Sig/Monique Route Start Time Stop Time Status Last Admin Dose Admin Metoprolol Tartrate 5 mg Q5MIN IV 01/29/25 20:00 01/29/25 20:15 5 MG Metoprolol Tartrate 5 mg Q5MIN IV 01/29/25 20:15 Cancel Nitroglycerin 0.4 mg Q5MINP PRN SL 01/29/25 22:30 Morphine Sulfate 2 mg Q30M PRN IV 01/29/25 22:30 Sodium Bicarbonate 650 mg BID PO 01/30/25 10:00 Apixaban 2.5 mg BID PO 01/30/25 10:00 Aspirin 81 mg DAILY PO 01/30/25 10:00 Lisinopril 10 mg DAILY PO 01/30/25 10:00 Pantoprazole Sodium 40 mg DAILY@0600 PO 01/30/25 06:00 Acetaminophen/ Hydrocodone Bitart 1 tab Q6HPRN PRN PO 01/29/25 22:30 Metoprolol Succinate 25 mg DAILY PO 01/30/25 10:00 Acetaminophen 650 mg Q6HP PRN PO 01/29/25 23:00 01/29/25 23:47 650 MG Exam Vital Signs Vital Signs Date Time Temp Pulse Resp B/P (MAP) Pulse Ox O2 Delivery O2 Flow Rate FiO2 01/30/25 02:00 66 15 133/55 (81) 94 01/29/25 20:31 Room Air* 0 21 01/29/25 19:55 98.2 98.2 Exam Gen - no pallor, no icterus, no cyanosis, no clubbing, Skin - Patients skin is warm and dry. HEENT - normocephalic, atraumatic, moist mucous membranes. Neck - full ROM, no LAD, no JVD Pulmonary - B/L equal breath sounds, no crackles, no wheezing, no stridor. cardiovascular - regular S1,S2 heard, grade 2/6 systolic murmur at the RUSB. peripheral pulses normal radial 2+, pedal 2+. 1+ bilateral pitting edema GI - soft, nontender abdomen. no hepatospleenomegaly. Bowel sounds normoactive Neurological - Patient is A/O X 3 . Bilateral upper extremity strength 5/5, bilateral lower extremity strength 5/5, no facial droop, normal speech, no tremor, no sensory deficiets. Labs/Xrays Labs Test 01/30/25 00:14 01/29/25 23:14 01/29/25 22:11 01/29/25 21:50 Range/Units Influenza Type A Antigen Negative Negative Influenza Type B Antigen Negative Negative SARS-CoV-2 Antigen (Rapid) Negative NEGATIVE Sodium Level 147 H 136-145 mmol/L Potassium Level 4.2 3.5-5.1 mmol/L Chloride Level 116 H 98-107 mmol/L Carbon Dioxide Level 20 20-31 mmol/L Anion Gap 11 5-15 Blood Urea Nitrogen 33 H 9-23 mg/dL Creatinine 1.03 H 0.550-1.02 mg/dL Glomerular Filtration Rate Calc 56 >90 mL/min BUN/Creatinine Ratio 32.0 H 10.0-20.0 Serum Glucose 84 74-106 mg/dL Calcium Level 9.7 8.7-10.4 mg/dL Total Bilirubin 0.3 0.2-1.0 mg/dL Aspartate Amino Transferase (AST) 17 13-40 U/L Alanine Aminotransferase (ALT) 13 7-40 U/L Alkaline Phosphatase 117 H 46-116 U/L Troponin I High Sensitivity 43 *H </=34 ng/L Total Protein 6.4 5.7-8.2 g/dL Albumin 3.9 3.2-4.8 g/dL Free Thyroxine (T4) Calculated 1.70 0.89-1.76 ng/dL Total Triiodothyronine (TT3) 1.04 0.60-1.81 ng/mL Lactic Acid Level 0.7 0.4-2.0 mmol/L Urine Color Colorless Yellow Urine Clarity Clear Clear Urine pH 5.5 5.0-9.0 Urine Specific Green 1.009 1.001-1.035 Urine Protein Negative Negative Urine Ketones Negative Negative Urine Blood Negative Negative /uL Urine Nitrite Negative Negative Urine Bilirubin Negative Negative Urine Urobilinogen Normal Negative mg/dL Urine Leukocyte Esterase Negative Negative /uL Urine RBC 1 0 - 4 /hpf Urine Microscopic WBC 1 0-5 /HPF Urine Squamous Epithelial Cells None seen <5 /hpf Urine Bacteria Few H None Seen /hpf Urine Hyaline Casts Few 0 - 2 /lpf Urine Glucose Normal Normal mg/dL Test 01/29/25 20:03 Range/Units White Blood Count 7.7 4.4-10.8 10^3/uL Red Blood Count 3.76 L 4.0-5.20 10^6/uL Hemoglobin 11.8 L 12.2-16.2 g/dL Hematocrit 34.8 L 36.0-46.0 % Mean Corpuscular Volume 92.5 80.0-100.0 fL Mean Corpuscular Hemoglobin 31.3 28.0-32.0 pg Mean Corpuscular Hemoglobin Concent 33.8 32.0-36.0 g/dL Red Cell Distribution Width 16.4 H 11.8-14.3 % Platelet Count 197 140-450 10^3/uL Mean Platelet Volume 8.1 6.9-10.8 fL Neutrophils (%) (Auto) 60.7 37.0-80.0 % Lymphocytes (%) (Auto) 27.2 10.0-50.0 % Monocytes (%) (Auto) 8.6 0.0-12.0 % Eosinophils (%) (Auto) 2.3 0.0-7.0 % Basophils (%) (Auto) 1.2 0.0-2.0 % Neutrophils # (Auto) 4.7 1.6-8.6 10 ^3/uL Lymphocytes # (Auto) 2.1 0.4-5.4 10 ^3/uL Monocytes # (Auto) 0.7 0-1.3 10 ^3/uL Eosinophils # (Auto) 0.2 0-0.8 10 ^3/uL Basophils # (Auto) 0.1 0-0.2 10 ^3/uL Nucleated Red Blood Cells 0.0 % Magnesium Level 2.1 1.6-2.6 mg/dL B-Type Natriuretic Peptide 105.62 0-100 pg/mL Thyroid Stimulating Hormone (TSH) 0.02 L 0.55-4.78 uIU/mL Assessment/Plan Assessment/Plan Acute chest pain, rule out ACS Supraventricular tachycardia, resolved ? History of atrial fibrillation H/o pulmonary embolism H/o DVT Hypertensive heart disease Obstructive sleep apnea - initial EKG showed supraventricular tachycardia - metoprolol given, patient converted to sinus rhythm - follow up ECG showed no acute ST or T-wave changes - troponins mildly elevated to 43 - echo from July 2024 shows LVEF 60% to with left atrial enlargement, AV calcification with moderate aortic stenosis, calculated aortic valve area of 1.35 centimeter sq - on lisinopril 10 mg daily - metoprolol succinate started at 25 mg H/o hypothyroidism - TSH at 0.02 - Free T4 and total T3 levels WNL - at home patient is on levothyroxine 150 mcg, not started yet GERALDO on 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 Full code Time spent: 41 minutes Plan discussed with Dr. Flores Plan discussed with: Patient My Orders Orders - REJI ARRIAZA RESIDENT Procedure Category Date Status Time Admit ADMIT 01/29/25 Transmitted 22:26 Nitroglycerin PHA 01/29/25 In Process Sublingual (Ntrostat 22:30 Morphine Sulfate PHA 01/29/25 In Process Injection 22:30 Oxygen By Nasal RT 01/29/25 Transmitted Cannula 22:26 Stat Ekg For Chest SAMMY 01/29/25 In Process Pain 22:26 Notify Md Of Changes SAMMY 01/29/25 In Process From Base 22:26 Hospitality Aide For SAMMY 01/29/25 In Process 24 Hours 22:26 Emergency Dysrhythmia SAMMY 01/29/25 In Process Protocol 22:26 Rhythm Strips Once SAMMY 01/29/25 In Process Every Shift 22:26 Complete Blood Count LAB 01/30/25 Logged 04:00 Comprehensive LAB 01/30/25 Logged Metabolic Panel 04:00 Sodium Bicarb Tab PHA 01/30/25 In Process 10:00 Apixaban (Eliquis) PHA 01/30/25 In Process 10:00 Aspirin Tablet PHA 01/30/25 In Process 10:00 Lisinopril Tablet PHA 01/30/25 In Process (Zestril Tablet) 10:00 Pantoprazole Tablet PHA 01/30/25 In Process (Protonix Tablet) 06:00 Hydrocodone-Acet PHA 01/29/25 In Process 5/325mg Tab ([place] 22:30 Metoprolol Xl PHA 01/30/25 In Process Succinate (Toprol Xl) 10:00 Acetaminophen Tablet PHA 01/29/25 In Process (Tylenol Tablet) 23:00 Date of Service: Jan 29, 2025 Billing Provider: LOREN FLORES MD Common Visit Codes: [id number] INP/OBS CARE (HIGH) Secondary Visit Codes: [id number] CARE PLAN 30 MINUTES REJI ARRIAZA RESIDENT Jan 30, 2025 04:28
[2025-01-30] MEDS: PANTOPRAZOLE 40 MG TAB PO SCH (06:09)
[2025-01-30 06:51] LABS: Basophils # (auto) 0 10 ^3/uL (0-0.2); Basophils % (auto) 0.5 % (0.0-2.0); Eosinophils # (auto) 0.2 10 ^3/uL (0-0.8); Eosinophils % (auto) 3.2 % (0.0-7.0); Hematocrit 32.8 % (36.0-46.0); Hemoglobin 10.6 g/dL (12.2-16.2); Lymphocytes # (auto) 1.8 10 ^3/uL (0.4-5.4); Lymphocytes % (auto) 31.8 % (10.0-50.0); Mean Corpuscular Hemoglobin 30.5 pg (28.0-32.0); Mean Corpuscular Hgb Conc. 32.4 g/dL (32.0-36.0); Mean Corpuscular Volume 94.1 fL (80.0-100.0); Monocytes # (auto) 0.5 10 ^3/uL (0-1.3); Monocytes % (auto) 8.3 % (0.0-12.0); Neutrophils # (auto) 3.2 10 ^3/uL (1.6-8.6); Neutrophils % (auto) 56.2 % (37.0-80.0); Platelet Count (auto) 174 10^3/uL (140-450); Red Blood Cells 3.48 10^6/uL (4.0-5.20); Red Cell Distribution Width 16.6 % (11.8-14.3); White Blood Cell 5.6 10^3/uL (4.4-10.8)
[2025-01-30 07:10] LABS: Alanine Aminotransferase 14 U/L (7-40); Anion Gap 13 (5-15); Aspartate Aminotransferase 18 U/L (13-40); BUN/Creatinine Ratio 28.3 (10.0-20.0); Calcium 10.1 mg/dL (8.7-10.4); Potassium 4.2 mmol/L (3.5-5.1); Sodium 144 mmol/L (136-145); Total Protein 6.7 g/dL (5.7-8.2)
[2025-01-30 07:11] LABS: Alkaline Phosphatase 121 U/L (46-116); Bilirubin, Total 0.4 mg/dL (0.2-1.0); Blood Urea Nitrogen 32 mg/dL (9-23); Carbon Dioxide 19 mmol/L (20-31); Chloride 112 mmol/L (98-107); Glucose 146 mg/dL (74-106)
[2025-01-30] MEDS: LISINOPRIL 5 MG TAB PO SCH (09:31)
[2025-01-30] MEDS: APIXABAN 2.5 MG TAB PO SCH (09:32)
[2025-01-30] MEDS: SODIUM BICARBONATE 650 MG TAB PO SCH (09:32)
[2025-01-30] MEDS: ASPirin 81 mg TAB PO SCH (09:32)
[2025-01-30] MEDS: METOPROLOL SUCCINATE XL 50 MG TAB PO SCH (09:33)
[2025-01-30] MEDS ORDERED: SODIUM BICARBONATE 650 MG TAB PO SCH (10:00)
--- NOTE | 2025-01-30 13:29 | DVHPN2 ---
Progress Note - Dictate Date Seen: Jan 30, 2025 Medical Necessity Reason Pt with a Central, PICC or Fol: No Subjective PT WITH SS COMPLEX OF CHEST PAIN SOB TROPONIN NEGATIVE ELEVATED LACTIC ACID PMH: ORGANIC HD CAD S/P PTCA STENT LAD AV STENOSIS [facility] 03/14 Left heart catheterization showed left main calcified, but patent. * Left anterior descending artery, mild intimal irregularity. Previous site of stent placement was patent with no residual stenosis. * Circumflex artery is large, codominant vessel with in the proximal segment had about a 50% stenosis. * Right coronary artery, mild codominant system, mild diffuse disease without any flow restrictive lesion. * Left ventricular function was preserved with an estimated EF of 65%. * There is a 30 mm gradient across the aortic valve. * Left ventricular end-diastolic pressure of 5-7 mmHg with left ventricular systolic pressure of greater than 200 at the time of the angiogram despite multiple interventions with nitroglycerin. * Right heart catheterization showed RA pressure of 2, RV pressure of 29/2, PA pressure of 31/7 and capillary wedge pressure of 7. * Cardiac output was calculated as 7 liters per minute with cardiac index of 3.47 liters per meter squared with a calculated aortic valve area of 1.12 sq cm. The patient was morbidly obese with severe shortness of breath. I believe the patient's shortness of breath is because of the aortic valve, even though the patient has moderate to severe aortic valve stenosis. We will discuss this case with Dr. Tommy Courtney at [facility] to see whether she is a candidate for TAVR. HTN HYPERLIPIDEMIA METABOLIC SYNDROME DVT PE HYPERCOAGULABLE STATE GOUT PSORIATIC ARTHRITIS vital signs Vital Sign Date Time Temp Pulse Resp B/P (MAP) Pulse Ox O2 Delivery O2 Flow Rate FiO2 01/30/25 09:33 70 140/57 01/30/25 09:00 97.5 17 95 97.5 01/30/25 08:00 Room Air* 0 21 Total Intake and Output 01/29/25 01/29/25 01/30/25 15:00 23:00 07:00 Intake Total 1500 ml 500 ml Output Total 300 ml Balance 1500 ml 200 ml medications Current Medications Medications Dose Ordered Sig/Monique Route Start Time Stop Time Status Last Admin Dose Admin Metoprolol Tartrate 5 mg Q5MIN IV 01/29/25 20:00 01/29/25 20:15 5 MG Metoprolol Tartrate 5 mg Q5MIN IV 01/29/25 20:15 Cancel Nitroglycerin 0.4 mg Q5MINP PRN SL 01/29/25 22:30 Morphine Sulfate 2 mg Q30M PRN IV 01/29/25 22:30 Apixaban 2.5 mg BID PO 01/30/25 10:00 01/30/25 09:32 2.5 MG Aspirin 81 mg DAILY PO 01/30/25 10:00 01/30/25 09:32 81 MG Lisinopril 10 mg DAILY PO 01/30/25 10:00 01/30/25 09:31 10 MG Pantoprazole Sodium 40 mg DAILY@0600 PO 01/30/25 06:00 01/30/25 06:09 40 MG Acetaminophen/ Hydrocodone Bitart 1 tab Q6HPRN PRN PO 01/29/25 22:30 Metoprolol Succinate 25 mg DAILY PO 01/30/25 10:00 01/30/25 09:33 25 MG Acetaminophen 650 mg Q6HP PRN PO 01/29/25 23:00 01/29/25 23:47 650 MG Sodium Bicarbonate 650 mg DAILY PO 01/30/25 10:00 01/30/25 09:32 650 MG laboratory and microbiology Laboratory Tests 01/30/25 06:13 Test 01/30/25 06:13 Range/Units Serum Glucose 146 H 74-106 mg/dL Problem List SS COMPLEX OF CHEST PAIN SOB TROPONIN NEGATIVE ELEVATED LACTIC ACID PMH: ORGANIC HD CAD S/P PTCA STENT LAD AV STENOSIS [facility] 03/14 Left heart catheterization showed left main calcified, but patent. * Left anterior descending artery, mild intimal irregularity. Previous site of stent placement was patent with no residual stenosis. * Circumflex artery is large, codominant vessel with in the proximal segment had about a 50% stenosis. * Right coronary artery, mild codominant system, mild diffuse disease without any flow restrictive lesion. * Left ventricular function was preserved with an estimated EF of 65%. * There is a 30 mm gradient across the aortic valve. * Left ventricular end-diastolic pressure of 5-7 mmHg with left ventricular systolic pressure of greater than 200 at the time of the angiogram despite multiple interventions with nitroglycerin. * Right heart catheterization showed RA pressure of 2, RV pressure of 29/2, PA pressure of 31/7 and capillary wedge pressure of 7. * Cardiac output was calculated as 7 liters per minute with cardiac index of 3.47 liters per meter squared with a calculated aortic valve area of 1.12 sq cm. The patient was morbidly obese with severe shortness of breath. I believe the patient's shortness of breath is because of the aortic valve, even though the patient has moderate to severe aortic valve stenosis. We will discuss this case with Dr. Tommy Courtney at [facility] to see whether she is a candidate for TAVR. HTN HYPERLIPIDEMIA METABOLIC SYNDROME DVT PE HYPERCOAGULABLE STATE GOUT PSORIATIC ARTHRITIS Assessment/Plan ECHO CONSIDER [facility] Plan discussed with: Patient Critical Care Time(min): 35 BROOKE ESCOBAR MD Jan 30, 2025 13:29
--- NOTE | 2025-01-30 15:46 | DVHPNRES ---
Progress Note Date Seen: Jan 30, 2025 Resident Creating Document: TERI CAMPOS RESIDENT Has the PT tested + for MRSA If YES, has PT been informed?: No Medical Necessity Reason Pt with a Central, PICC or Fol: No Subjective Review of Systems Patient is a 79-year-old female with a past medical history of hypertension, coronary artery disease, [place] s/p PCI to lad, aortic valve stenosis, psoriatic arthritis, gout, pulmonary embolism presented to the ED with a chief complaint of palpitations and chest pain. Patient reported while she was driving on the highway from [facility] back to [place] he started to have palpitations and nondistended heart rate to be very fast and had associated chest pain retrosternal and in the back across the shoulder brace radiating down to both her arms, no sweating, no nausea or vomiting, no abdominal pain following which he called the emergency medical services but she continued to drive and came to the hospital. On arrival to the hospital 12 lead ECG was done which showed SVT and patient was given IV metoprolol following which she converted to the sinus rhythm. Patient is following up with the doctor Noe who is her report clerk and primary care provider. Past medical history: As per HPI Past surgical history: PCI with 1 DELORIS to LAD, hysterectomy, tubal ligation Social history: Patient denies smoking, alcohol, drug use Home medications: Eliquis 2.5 b.i.d., levothyroxine 150 mcg, lisinopril 10 mg, allopurinol 300 mg, sodium bicarb 650 daily, leflunomide, recenlty started tremfya 01/30/2025: HR 70 after metoprolol IV, patient states palpitations and declined on NYHA functional class, Dr Liu was consulted, she had a LHC in february 2024 showing patent stent in LAD, he stated his SOB can be related to aortic valve stenosis, possible TAVR, possible new LHC, pending new ECHO Objective vital signs Vital Sign Date Time Temp Pulse Resp B/P (MAP) Pulse Ox O2 Delivery O2 Flow Rate FiO2 01/30/25 13:00 98.1 70 18 155/56 (89) 95 98.1 01/30/25 08:00 Room Air* 0 21 Total Intake and Output 01/29/25 01/29/25 01/30/25 15:00 23:00 07:00 Intake Total 1500 ml 500 ml Output Total 300 ml Balance 1500 ml 200 ml medications Current Medications Medications Dose Ordered Sig/Monique Route Start Time Stop Time Status Last Admin Dose Admin Metoprolol Tartrate 5 mg Q5MIN IV 01/29/25 20:00 01/29/25 20:15 5 MG Metoprolol Tartrate 5 mg Q5MIN IV 01/29/25 20:15 Cancel Nitroglycerin 0.4 mg Q5MINP PRN SL 01/29/25 22:30 Morphine Sulfate 2 mg Q30M PRN IV 01/29/25 22:30 Apixaban 2.5 mg BID PO 01/30/25 10:00 01/30/25 09:32 2.5 MG Aspirin 81 mg DAILY PO 01/30/25 10:00 01/30/25 09:32 81 MG Lisinopril 10 mg DAILY PO 01/30/25 10:00 01/30/25 09:31 10 MG Pantoprazole Sodium 40 mg DAILY@0600 PO 01/30/25 06:00 01/30/25 06:09 40 MG Acetaminophen/ Hydrocodone Bitart 1 tab Q6HPRN PRN PO 01/29/25 22:30 Metoprolol Succinate 25 mg DAILY PO 01/30/25 10:00 01/30/25 09:33 25 MG Acetaminophen 650 mg Q6HP PRN PO 01/29/25 23:00 01/29/25 23:47 650 MG Sodium Bicarbonate 650 mg DAILY PO 01/30/25 10:00 01/30/25 09:32 650 MG Examination Gen - no pallor, no icterus, no cyanosis, no clubbing, Skin - Patients skin is warm and dry. HEENT - normocephalic, atraumatic, moist mucous membranes. Neck - full ROM, no LAD, no JVD Pulmonary - B/L equal breath sounds, no crackles, no wheezing, no stridor. cardiovascular - regular S1,S2 heard, grade 2/6 systolic murmur at the RUSB. peripheral pulses normal radial 2+, pedal 2+. 1+ bilateral pitting edema GI - soft, nontender abdomen. no hepatospleenomegaly. Bowel sounds normoactive Neurological - Patient is A/O X 3 . Bilateral upper extremity strength 5/5, bilateral lower extremity strength 5/5, no facial droop, normal speech, no tremor, no sensory deficiets. laboratory and microbiology Laboratory Tests 01/30/25 06:13 Test 01/30/25 06:13 Range/Units Serum Glucose 146 H 74-106 mg/dL Problem List/Assessment/Plan Problem List/Assessment/Plan Supraventricular tachycardia, resolved ? History of atrial fibrillation H/o pulmonary embolism H/o DVT Hypertensive heart disease Obstructive sleep apnea Moderate/severe aortic stenosis Acute chest pain, rule out ACS - initial EKG showed supraventricular tachycardia - metoprolol given, patient converted to sinus rhythm - follow up ECG showed no acute ST or T-wave changes - troponins mildly elevated to 43 - echo from July 2024 shows LVEF 60% to with left atrial enlargement, AV calcification with moderate aortic stenosis, calculated aortic valve area of 1.35 centimeter sq - on lisinopril 10 mg daily - metoprolol succinate started at 25 mg 01/30/2025: HR 70 after metoprolol IV, no active chest pain, patient states palpitations and declined on NYHA functional class, Dr Liu was consulted, she had a LHC in february 2024 showing patent stent in LAD, he stated his SOB can be related to aortic valve stenosis, possible TAVR, possible new LHC, pending new ECHO H/o hypothyroidism - TSH at 0.02 - Free T4 and total T3 levels WNL - at home patient is on levothyroxine 150 mcg, not started yet, hold on GERALDO on 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 Full code Time spent: 41 minutes Plan discussed with Dr. Suero Plan discussed with: Patient, Other (rn) My Orders My Orders Orders - TERI CAMPOS RESIDENT Procedure Category Date Status Time *Consult Dr. Liu CONS 01/30/25 Transmitted [place] 11:14 Date of Service: Jan 30, 2025 Billing Provider: SEBAS SUERO MD Common Visit Codes: [id number] INP/OBS CARE(HIGH) TERI CAMPOS RESIDENT Jan 30, 2025 15:45 SEBAS SUERO MD Jan 31, 2025 11:59
[2025-01-31] VITALS (9 sets, daily range): BP systolic 119–144; BP diastolic 49–61; PULSE 61–77; RESP 17–18; TEMP 97.8–98.6; O2SAT 94–98
[2025-01-31 06:53] LABS: Basophils # (auto) 0 10 ^3/uL (0-0.2); Basophils % (auto) 0.3 % (0.0-2.0); Eosinophils # (auto) 0.3 10 ^3/uL (0-0.8); Eosinophils % (auto) 5.6 % (0.0-7.0); Hematocrit 30.9 % (36.0-46.0); Lymphocytes % (auto) 37.4 % (10.0-50.0); Mean Corpuscular Hemoglobin 30.4 pg (28.0-32.0); Mean Corpuscular Hgb Conc. 32.4 g/dL (32.0-36.0); Mean Corpuscular Volume 93.8 fL (80.0-100.0); Monocytes # (auto) 0.6 10 ^3/uL (0-1.3); Monocytes % (auto) 10.6 % (0.0-12.0); Neutrophils # (auto) 2.5 10 ^3/uL (1.6-8.6); Neutrophils % (auto) 46.1 % (37.0-80.0); Platelet Count (auto) 176 10^3/uL (140-450); Red Cell Distribution Width 16.2 % (11.8-14.3); White Blood Cell 5.3 10^3/uL (4.4-10.8)
[2025-01-31 06:58] LABS: Anion Gap 9 (5-15); Carbon Dioxide 22 mmol/L (20-31); Potassium 4.6 mmol/L (3.5-5.1); Sodium 141 mmol/L (136-145)
[2025-01-31 06:59] LABS: Calcium 9.2 mg/dL (8.7-10.4)
[2025-01-31 07:00] LABS: Chloride 110 mmol/L (98-107)
[2025-01-31 07:04] LABS: BUN/Creatinine Ratio 30.3 (10.0-20.0); Glucose 83 mg/dL (74-106)
[2025-01-31 07:05] LABS: Blood Urea Nitrogen 30 mg/dL (9-23)
--- NOTE | 2025-01-31 10:32 | ECG ---
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
--- NOTE | 2025-01-31 15:34 | DVHPN2 ---
Progress Note Date Seen: Jan 31, 2025 Has the PT tested + for MRSA If YES, has PT been informed?: No Medical Necessity Reason Pt with a Central, PICC or Fol: No Subjective Patient reports: No new complaints Review of Systems: HEENT:Normal, CVS:Normal, RESPIRATORY:Normal, GI:Normal, :Normal, MSK:Normal, NEURO:Normal Objective vital signs Vital Sign Date Time Temp Pulse Resp B/P (MAP) Pulse Ox O2 Delivery O2 Flow Rate FiO2 01/31/25 13:00 97.8 61 18 139/61 (87) 96 97.8 01/31/25 08:00 Room Air* 0 21 Total Intake and Output 01/30/25 01/30/25 01/31/25 15:00 23:00 07:00 Intake Total 875 ml 800 ml Balance 875 ml 800 ml medications Current Medications Medications Dose Ordered Sig/Monique Route Start Time Stop Time Status Last Admin Dose Admin Metoprolol Tartrate 5 mg Q5MIN IV 01/29/25 20:15 Cancel Nitroglycerin 0.4 mg Q5MINP PRN SL 01/29/25 22:30 Morphine Sulfate 2 mg Q30M PRN IV 01/29/25 22:30 Apixaban 2.5 mg BID PO 01/30/25 10:00 01/31/25 09:35 2.5 MG Aspirin 81 mg DAILY PO 01/30/25 10:00 01/30/25 09:32 81 MG Lisinopril 10 mg DAILY PO 01/30/25 10:00 01/31/25 09:37 10 MG Pantoprazole Sodium 40 mg DAILY@0600 PO 01/30/25 06:00 01/31/25 05:15 40 MG Acetaminophen/ Hydrocodone Bitart 1 tab Q6HPRN PRN PO 01/29/25 22:30 Metoprolol Succinate 25 mg DAILY PO 01/30/25 10:00 01/31/25 09:36 25 MG Acetaminophen 650 mg Q6HP PRN PO 01/29/25 23:00 01/30/25 20:16 650 MG Sodium Bicarbonate 650 mg DAILY PO 01/30/25 10:00 01/31/25 09:35 650 MG Allopurinol 300 mg HS PO 01/31/25 22:00 Levothyroxine Sodium 150 mcg QAM@0600 PO 02/01/25 06:00 Examination: GENERAL:Normal, HEENT:Normal, NECK:Normal, LUNGS:Normal, CVS:Normal, ABDOMEN:Normal, MSK:Normal, SKIN:Normal, NEURO:Normal, :Normal laboratory and microbiology Laboratory Tests 01/31/25 04:34 Test 01/31/25 04:34 Range/Units Serum Glucose 83 74-106 mg/dL Problem List/Assessment/Plan Problem List/Assessment/Plan #1 s/p svt #2 #3 htn #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
[2025-01-31] MEDS: ALLOPURINOL 100 MG TAB PO SCH (21:14)
[2025-02-01 01:00] VITALS: BP 117/50; PULSE 57; RESP 17; TEMP 98; O2SAT 98
[2025-02-01 05:00] VITALS: BP 116/42; PULSE 57; RESP 17; TEMP 97.6; O2SAT 92
[2025-02-01] MEDS: LEVOTHYROXINE SODIUM 50 MCG TAB PO SCH (05:36)
[2025-02-01 08:00] VITALS: PULSE 57; PULSE 60; RESP 18; O2SAT 95
[2025-02-01 09:14] VITALS: BP 133/52; PULSE 60; RESP 18; TEMP 97.5; O2SAT 95
--- NOTE | 2025-02-01 11:43 | DVHPN2 ---
Progress Note - Dictate Date Seen: Jan 31, 2025 Has the PT tested + for MRSA If YES, has PT been informed?: No Medical Necessity Reason Pt with a Central, PICC or Fol: No Subjective PT WITH SS COMPLEX OF CHEST PAIN SOB TROPONIN NEGATIVE ELEVATED LACTIC ACID PMH: ORGANIC HD CAD S/P PTCA STENT LAD AV STENOSIS [facility] 03/14 Left heart catheterization showed left main calcified, but patent. * Left anterior descending artery, mild intimal irregularity. Previous site of stent placement was patent with no residual stenosis. * Circumflex artery is large, codominant vessel with in the proximal segment had about a 50% stenosis. * Right coronary artery, mild codominant system, mild diffuse disease without any flow restrictive lesion. * Left ventricular function was preserved with an estimated EF of 65%. * There is a 30 mm gradient across the aortic valve. * Left ventricular end-diastolic pressure of 5-7 mmHg with left ventricular systolic pressure of greater than 200 at the time of the angiogram despite multiple interventions with nitroglycerin. * Right heart catheterization showed RA pressure of 2, RV pressure of 29/2, PA pressure of 31/7 and capillary wedge pressure of 7. * Cardiac output was calculated as 7 liters per minute with cardiac index of 3.47 liters per meter squared with a calculated aortic valve area of 1.12 sq cm. The patient was morbidly obese with severe shortness of breath. I believe the patient's shortness of breath is because of the aortic valve, even though the patient has moderate to severe aortic valve stenosis. We will discuss this case with Dr. Tommy Courtney at [facility] to see whether she is a candidate for TAVR. HTN HYPERLIPIDEMIA METABOLIC SYNDROME DVT PE HYPERCOAGULABLE STATE GOUT PSORIATIC ARTHRITIS vital signs Vital Sign Date Time Temp Pulse Resp B/P (MAP) Pulse Ox O2 Delivery O2 Flow Rate FiO2 02/01/25 09:26 60 133/52 02/01/25 09:14 97.5 18 95 97.5 02/01/25 08:00 Room Air* 0 21 Total Intake and Output 01/31/25 01/31/25 02/01/25 15:00 23:00 07:00 Intake Total 950 ml 600 ml Balance 950 ml 600 ml medications Current Medications Medications Dose Ordered Sig/Monique Route Start Time Stop Time Status Last Admin Dose Admin Metoprolol Tartrate 5 mg Q5MIN IV 01/29/25 20:15 Cancel Nitroglycerin 0.4 mg Q5MINP PRN SL 01/29/25 22:30 Morphine Sulfate 2 mg Q30M PRN IV 01/29/25 22:30 Apixaban 2.5 mg BID PO 01/30/25 10:00 02/01/25 09:25 2.5 MG Aspirin 81 mg DAILY PO 01/30/25 10:00 01/30/25 09:32 81 MG Lisinopril 10 mg DAILY PO 01/30/25 10:00 02/01/25 09:25 10 MG Pantoprazole Sodium 40 mg DAILY@0600 PO 01/30/25 06:00 02/01/25 05:36 40 MG Acetaminophen/ Hydrocodone Bitart 1 tab Q6HPRN PRN PO 01/29/25 22:30 Metoprolol Succinate 25 mg DAILY PO 01/30/25 10:00 02/01/25 09:26 25 MG Acetaminophen 650 mg Q6HP PRN PO 01/29/25 23:00 02/01/25 09:25 650 MG Sodium Bicarbonate 650 mg DAILY PO 01/30/25 10:00 02/01/25 09:26 650 MG Allopurinol 300 mg HS PO 01/31/25 22:00 01/31/25 21:14 300 MG Levothyroxine Sodium 150 mcg QAM@0600 PO 02/01/25 06:00 02/01/25 05:36 150 MCG laboratory and microbiology Laboratory Tests 01/31/25 04:34 Test 01/31/25 04:34 Range/Units Serum Glucose 83 74-106 mg/dL Problem List SS COMPLEX OF CHEST PAIN SOB TROPONIN NEGATIVE ELEVATED LACTIC ACID PMH: ORGANIC HD CAD S/P PTCA STENT LAD AV STENOSIS [facility] 03/14 Left heart catheterization showed left main calcified, but patent. * Left anterior descending artery, mild intimal irregularity. Previous site of stent placement was patent with no residual stenosis. * Circumflex artery is large, codominant vessel with in the proximal segment had about a 50% stenosis. * Right coronary artery, mild codominant system, mild diffuse disease without any flow restrictive lesion. * Left ventricular function was preserved with an estimated EF of 65%. * There is a 30 mm gradient across the aortic valve. * Left ventricular end-diastolic pressure of 5-7 mmHg with left ventricular systolic pressure of greater than 200 at the time of the angiogram despite multiple interventions with nitroglycerin. * Right heart catheterization showed RA pressure of 2, RV pressure of 29/2, PA pressure of 31/7 and capillary wedge pressure of 7. * Cardiac output was calculated as 7 liters per minute with cardiac index of 3.47 liters per meter squared with a calculated aortic valve area of 1.12 sq cm. The patient was morbidly obese with severe shortness of breath. I believe the patient's shortness of breath is because of the aortic valve, even though the patient has moderate to severe aortic valve stenosis. We will discuss this case with Dr. Tommy Courtney at [facility] to see whether she is a candidate for TAVR. HTN HYPERLIPIDEMIA METABOLIC SYNDROME DVT PE HYPERCOAGULABLE STATE GOUT PSORIATIC ARTHRITIS CHEST PAIN SECONDARY TO SVT Assessment/Plan ECHO CONSIDER [facility] DEFERRED TREATMENT OF SVT CONSIDER RF ABLATION OUTPATIENT TITRATE BETA ROBERT Plan discussed with: Patient BROOKE ESCOBAR MD Feb 01, 2025 11:43
--- NOTE | 2025-02-01 11:46 | DVHDS2 ---
Discharge Summary Date of Admission Jan 29, 2025 at 22:26 Date of Discharge: Feb 01, 2025 Admitting Diagnosis CHEST PAIN SECONDARY TO SVT Labs/Diagnostic Data: Laboratory Results Test 01/31/25 04:34 01/30/25 06:13 01/30/25 00:14 01/29/25 23:14 White Blood Count 5.3 10^3/uL (4.4-10.8) Red Blood Count 3.30 10^6/uL (4.0-5.20) Hemoglobin 10.0 g/dL (12.2-16.2) Hematocrit 30.9 % (36.0-46.0) Mean Corpuscular Volume 93.8 fL (80.0-100.0) Mean Corpuscular Hemoglobin 30.4 pg (28.0-32.0) Mean Corpuscular Hemoglobin Concent 32.4 g/dL (32.0-36.0) Red Cell Distribution Width 16.2 % (11.8-14.3) Platelet Count 176 10^3/uL (140-450) Mean Platelet Volume 8.7 fL (6.9-10.8) Neutrophils (%) (Auto) 46.1 % (37.0-80.0) Lymphocytes (%) (Auto) 37.4 % (10.0-50.0) Monocytes (%) (Auto) 10.6 % (0.0-12.0) Eosinophils (%) (Auto) 5.6 % (0.0-7.0) Basophils (%) (Auto) 0.3 % (0.0-2.0) Neutrophils # (Auto) 2.5 10 ^3/uL (1.6-8.6) Lymphocytes # (Auto) 2.0 10 ^3/uL (0.4-5.4) Monocytes # (Auto) 0.6 10 ^3/uL (0-1.3) Eosinophils # (Auto) 0.3 10 ^3/uL (0-0.8) Basophils # (Auto) 0 10 ^3/uL (0-0.2) Nucleated Red Blood Cells 0.0 % Sodium Level 141 mmol/L (136-145) Potassium Level 4.6 mmol/L (3.5-5.1) Chloride Level 110 mmol/L (98-107) Carbon Dioxide Level 22 mmol/L (20-31) Anion Gap 9 (5-15) Blood Urea Nitrogen 30 mg/dL (9-23) Creatinine 0.99 mg/dL (0.550-1.02) Glomerular Filtration Rate Calc 59 mL/min (>90) BUN/Creatinine Ratio 30.3 (10.0-20.0) Serum Glucose 83 mg/dL (74-106) Calcium Level 9.2 mg/dL (8.7-10.4) Total Bilirubin 0.4 mg/dL (0.2-1.0) Aspartate Amino Transferase (AST) 18 U/L (13-40) Alanine Aminotransferase (ALT) 14 U/L (7-40) Alkaline Phosphatase 121 U/L (46-116) Total Protein 6.7 g/dL (5.7-8.2) Albumin 4.0 g/dL (3.2-4.8) Influenza Type A Antigen Negative (Negative) Influenza Type B Antigen Negative (Negative) SARS-CoV-2 Antigen (Rapid) Negative (NEGATIVE) Troponin I High Sensitivity 43 ng/L (</=34) Free Thyroxine (T4) Calculated 1.70 ng/dL (0.89-1.76) Total Triiodothyronine (TT3) 1.04 ng/mL (0.60-1.81) Test 01/29/25 22:11 01/29/25 21:50 01/29/25 20:03 Lactic Acid Level 0.7 mmol/L (0.4-2.0) Urine Color Colorless (Yellow) Urine Clarity Clear (Clear) Urine pH 5.5 (5.0-9.0) Urine Specific Lindsay 1.009 (1.001-1.035) Urine Protein Negative (Negative) Urine Ketones Negative (Negative) Urine Blood Negative /uL (Negative) Urine Nitrite Negative (Negative) Urine Bilirubin Negative (Negative) Urine Urobilinogen Normal mg/dL (Negative) Urine Leukocyte Esterase Negative /uL (Negative) Urine RBC 1 /hpf (0 - 4) Urine Microscopic WBC 1 /HPF (0-5) Urine Squamous Epithelial Cells None seen /hpf (<5) Urine Bacteria Few /hpf (None Seen) Urine Hyaline Casts Few /lpf (0 - 2) Urine Glucose Normal mg/dL (Normal) Magnesium Level 2.1 mg/dL (1.6-2.6) B-Type Natriuretic Peptide 105.62 pg/mL (0-100) Thyroid Stimulating Hormone (TSH) 0.02 uIU/mL (0.55-4.78) Other Laboratory Tests 01/31/25 04:34 Brief Hx & Hospital Course: NO FURTHER EPISODE OF SVT NO FURTHER CHEST PAIN TITRATE ON BETA ROBERT F/U IN 2 WEEK OUT PT EVALUATION FOR RF ABLATION SERIAL TROPONIN NORMAL Consults/Reason for consult CARDIOLOGY FOR CP Condition at Discharge: Good Final Diagnosis/Problems List SS COMPLEX OF CHEST PAIN SOB TROPONIN NEGATIVE ELEVATED LACTIC ACID PMH: ORGANIC HD CAD S/P PTCA STENT LAD AV STENOSIS [facility] 03/14 Left heart catheterization showed left main calcified, but patent. * Left anterior descending artery, mild intimal irregularity. Previous site of stent placement was patent with no residual stenosis. * Circumflex artery is large, codominant vessel with in the proximal segment had about a 50% stenosis. * Right coronary artery, mild codominant system, mild diffuse disease without any flow restrictive lesion. * Left ventricular function was preserved with an estimated EF of 65%. * There is a 30 mm gradient across the aortic valve. * Left ventricular end-diastolic pressure of 5-7 mmHg with left ventricular systolic pressure of greater than 200 at the time of the angiogram despite multiple interventions with nitroglycerin. * Right heart catheterization showed RA pressure of 2, RV pressure of 29/2, PA pressure of 31/7 and capillary wedge pressure of 7. * Cardiac output was calculated as 7 liters per minute with cardiac index of 3.47 liters per meter squared with a calculated aortic valve area of 1.12 sq cm. The patient was morbidly obese with severe shortness of breath. I believe the patient's shortness of breath is because of the aortic valve, even though the patient has moderate to severe aortic valve stenosis. We will discuss this case with Dr. Tommy Courtney at [facility] to see whether she is a candidate for TAVR. HTN HYPERLIPIDEMIA METABOLIC SYNDROME DVT PE HYPERCOAGULABLE STATE GOUT PSORIATIC ARTHRITIS CHEST PAIN SECONDARY TO SVT Discharge Disposition: Home Discharge Instruct/Medications Diet: Cardiac 2g Na,low cholest Activity: No Restrictions, As Tolerated Medications: CONT HOME MEDS INCREASE TOPROL TO 2X A DAY Discharge Statement: "Patient was advised to return to the ER or call 911 if any headaches, dizziness, shortness of breath, chest pain, abdominal pain, bleeding, fevers, or worsening of medical condition. Patient was counseled about treatment plan, medications, possible side effects, patientverbalized understanding. All questions were answered to the best of my ability. This discharge took greater then 30 minutes in planning, reviewing documentation, counseling the patient, and discussing with other team members." ASSESSMENT ASSESSMENT Assessment BROOKE ESCOBAR MD Feb 01, 2025 11:46
[2025-02-01 12:30] VITALS: BP 108/50; PULSE 66; RESP 20; TEMP 97.9; O2SAT 96
[2025-02-01 14:59] VITALS: BP 108/50; PULSE 66; RESP 20; TEMP 97.9; O2SAT 96
== END 2025-02-01 15:50 | disposition home or self-care (01) | DRG 281 ==
LOC: ER 19:37 → OVERFLOW 22:26 → TELE-WESTW 22:59
PROVIDERS: ADMIT Hospitalist; ATTEND Hospitalist
DX: I47.10 Supraventricular tachycardia, unspecified (principal); D68.59 Other primary thrombophilia; I21.A1 Myocardial infarction type 2; N17.9 Acute kidney failure, unspecified; I11.0 Hypertensive heart disease with heart failure; G47.33 Obstructive sleep apnea (adult) (pediatric); I25.10 Atherosclerotic heart disease of native coronary artery without angina pectoris; M10.9 Gout, unspecified; E03.9 Hypothyroidism, unspecified; E66.01 Morbid (severe) obesity due to excess calories; E78.5 Hyperlipidemia, unspecified; E88.810 Metabolic syndrome; I50.9 Heart failure, unspecified; Z88.8 Allergy status to other drugs, medicaments and biological substances; Z88.0 Allergy status to penicillin; Z88.6 Allergy status to analgesic agent; Z79.01 Long term (current) use of anticoagulants; Z79.899 Other long term (current) drug therapy; Z98.61 Coronary angioplasty status; Z90.710 Acquired absence of both cervix and uterus; Z98.51 Tubal ligation status; Z88.1 Allergy status to other antibiotic agents; Z68.39 Body mass index [BMI] 39.0-39.9, adult; L40.50 Arthropathic psoriasis, unspecified
CPT/HCPCS: 36415; 71045; 80048; 80053; 81001; 83605; 83735; 83880; 84439; 84443; 84480; 84484; 85025; 87426; 87804; 93005; 93306; 96361; 96374; 99291; G0378

== ENCOUNTER 2025-03-08 11:33 | Outpatient (CLI) | payer MEDICARE, OTHER ==
[2025-03-08 11:30] VITALS: BP 136/73; PULSE 68; RESP 16; O2SAT 97
[2025-03-08] MEDS: IRON SUCROSE 20 mg/ml 10ml VIAL IV ONE (11:50)
[2025-03-08] MEDS: IRON SUCROSE COMPLEX 110 ML IV ONE (11:57)
[2025-03-08 12:55] VITALS: BP 143/44; PULSE 59; RESP 16; O2SAT 97
== END 2025-03-08 17:00 | disposition home or self-care (01) ==
LOC: CHF HDHVI 11:33
PROVIDERS: ATTEND Internal Medicine Cardiovascular Disease
DX: D50.9 Iron deficiency anemia, unspecified (principal); N17.9 Acute kidney failure, unspecified; I13.0 Hypertensive heart and chronic kidney disease with heart failure and stage 1 through stage 4 chronic kidney disease, or unspecified chronic kidney disease; E11.22 Type 2 diabetes mellitus with diabetic chronic kidney disease; N18.4 Chronic kidney disease, stage 4 (severe); I50.9 Heart failure, unspecified; R06.02 Shortness of breath; I35.0 Nonrheumatic aortic (valve) stenosis; D46.4 Refractory anemia, unspecified; E03.9 Hypothyroidism, unspecified; E78.5 Hyperlipidemia, unspecified; G47.33 Obstructive sleep apnea (adult) (pediatric); M10.9 Gout, unspecified; I25.10 Atherosclerotic heart disease of native coronary artery without angina pectoris; L40.50 Arthropathic psoriasis, unspecified; D68.69 Other thrombophilia; E66.01 Morbid (severe) obesity due to excess calories; Z68.39 Body mass index [BMI] 39.0-39.9, adult; Z88.6 Allergy status to analgesic agent; Z88.1 Allergy status to other antibiotic agents; Z88.8 Allergy status to other drugs, medicaments and biological substances; Z88.0 Allergy status to penicillin; Z98.61 Coronary angioplasty status; Z79.01 Long term (current) use of anticoagulants; Z79.899 Other long term (current) drug therapy; Z98.51 Tubal ligation status; Z90.710 Acquired absence of both cervix and uterus
CPT/HCPCS: 96365; G0463; J1756

== ENCOUNTER 2025-03-13 10:15 | Outpatient (CLI) | payer MEDICARE, OTHER ==
[2025-03-13] MEDS: IRON SUCROSE 20 mg/ml 10ml VIAL IV ONE (10:24)
[2025-03-13 10:30] VITALS: BP 123/49; PULSE 72; RESP 16; O2SAT 95
[2025-03-13] MEDS: IRON SUCROSE COMPLEX 110 ML IV ONE (10:57)
[2025-03-13 12:03] VITALS: BP 128/62; PULSE 65; RESP 16; O2SAT 95
== END 2025-03-13 17:00 | disposition home or self-care (01) ==
LOC: CHF HDHVI 10:15
PROVIDERS: ATTEND Internal Medicine Cardiovascular Disease
DX: D46.1 Refractory anemia with ring sideroblasts (principal); I13.0 Hypertensive heart and chronic kidney disease with heart failure and stage 1 through stage 4 chronic kidney disease, or unspecified chronic kidney disease; N18.31 Chronic kidney disease, stage 3a; I50.9 Heart failure, unspecified; D50.9 Iron deficiency anemia, unspecified; I25.10 Atherosclerotic heart disease of native coronary artery without angina pectoris; E78.5 Hyperlipidemia, unspecified; E03.9 Hypothyroidism, unspecified; G47.33 Obstructive sleep apnea (adult) (pediatric); E66.01 Morbid (severe) obesity due to excess calories; Z68.39 Body mass index [BMI] 39.0-39.9, adult; Z79.899 Other long term (current) drug therapy; Z79.01 Long term (current) use of anticoagulants
CPT/HCPCS: 96365; G0463; J1756

== ENCOUNTER 2025-03-21 10:11 | Outpatient (CLI) | payer MEDICARE, OTHER ==
[2025-03-21 10:16] VITALS: BP 134/56; PULSE 75; RESP 18; O2SAT 96
[2025-03-21] MEDS: IRON SUCROSE 20 mg/ml 10ml VIAL IV ONE (10:36)
[2025-03-21] MEDS: IRON SUCROSE COMPLEX 110 ML IV ONE (10:36)
[2025-03-21 11:31] VITALS: BP 135/81; PULSE 71; RESP 18; O2SAT 96
== END 2025-03-21 17:00 | disposition home or self-care (01) ==
LOC: CHF HDHVI 10:11
PROVIDERS: ATTEND Internal Medicine Cardiovascular Disease
DX: I13.0 Hypertensive heart and chronic kidney disease with heart failure and stage 1 through stage 4 chronic kidney disease, or unspecified chronic kidney disease (principal); E11.22 Type 2 diabetes mellitus with diabetic chronic kidney disease; I50.9 Heart failure, unspecified; N18.4 Chronic kidney disease, stage 4 (severe); D63.1 Anemia in chronic kidney disease; I25.10 Atherosclerotic heart disease of native coronary artery without angina pectoris; E78.5 Hyperlipidemia, unspecified; E03.9 Hypothyroidism, unspecified; G47.33 Obstructive sleep apnea (adult) (pediatric); M10.9 Gout, unspecified; D50.9 Iron deficiency anemia, unspecified; D46.1 Refractory anemia with ring sideroblasts; Z79.899 Other long term (current) drug therapy; Z79.01 Long term (current) use of anticoagulants; Z90.710 Acquired absence of both cervix and uterus; Z88.6 Allergy status to analgesic agent; Z88.1 Allergy status to other antibiotic agents; Z88.0 Allergy status to penicillin; Z88.8 Allergy status to other drugs, medicaments and biological substances; Z98.51 Tubal ligation status
CPT/HCPCS: 96365; G0463; J1756